=== PATIENT | female | born 1950 | race Caucasian/White ===

== ENCOUNTER 2021-01-27 22:03 | Inpatient (IN) | payer OTHER ==
[2021-01-27 22:18] VITALS: BMI 29.2
[2021-01-27] MEDS ORDERED: SODIUM CHLORIDE 1,000 ML IV STA (23:11)
[2021-01-28 01:09] LABS: BASO % 1.1 % (0-2.0); EOS % 1.1 % (0-4.5); HEMATOCRIT 41.3 % (32.4-45.2); HEMOGLOBIN 13.3 GM/dL (10.7-15.3); LYMPH % 6.9 % (8-40); MCH 28.7 pg (25.7-33.7); MCHC 32.3 g/dl (32.0-36.0); MEAN CELL VOLUME 88.8 fl (80-96); MEAN PLT VOLUME 11.1 fl (7.5-11.1); MONO % 3.8 % (3.8-10.2); NEUT % 87.1 % (42.8-82.8); PLATELET COUNT 233 10^3/uL (134-434); RBC 4.64 M/mm3 (3.60-5.2); RDW 16.8 % (11.6-15.6)
[2021-01-28 01:15] LABS: WHITE BLOOD COUNT 48.7 K/mm3 (4.0-10.0)
[2021-01-28 01:26] LABS: CALCIUM 9.8 mg/dL (8.5-10.1)
[2021-01-28 01:27] LABS: ALBUMIN 4.1 g/dl (3.4-5.0); BLOOD UREA NITROGEN 15.9 mg/dL (7-18)
[2021-01-28 01:30] LABS: CREATININE 1.6 mg/dL (0.55-1.3)
[2021-01-28 01:32] LABS: BILIRUBIN,TOTAL 0.5 mg/dL (0.2-1); TOT PROT 8.4 g/dl (6.4-8.2)
[2021-01-28 02:04] LABS: LACTIC ACID 3.6 mmol/L (0.4-2.0)
[2021-01-28 02:06] LABS: URINE APPEARANCE CLEAR; URINE BILIRUBIN NEGATIVE (NEGATIVE); URINE COLOR YELLOW; URINE GLUCOSE (UA) NEGATIVE (NEGATIVE); URINE KETONE 2+ (NEGATIVE); URINE LEUK ESTERASE NEGATIVE (NEGATIVE); URINE NITRITE NEGATIVE (NEGATIVE); URINE PROTEIN NEGATIVE (NEGATIVE); URINE UROBILINOGEN 0.2 mg/dL (0.2-1.0)
[2021-01-28 02:45] LABS: ANISOCYTOSIS 1+; MACROCYTOSIS 0; PLATELET ESTIMATE NORMAL
[2021-01-28] MEDS ORDERED: PIPERACILLIN/TAZOB 4.5 GM 4.5 GM in DEXTROSE 5%-WATER 100 ML IVPB ONE (03:04)
[2021-01-28] MEDS ORDERED: PIPERACILLIN/TAZOB 3.375 GM 3.375 GM in DEXTROSE 5%-WATER - 50 ML IVPB ONE (03:06)
[2021-01-28] MEDS ORDERED: LORazepam 2 MG/ML SDV VIAL IVPUSH ONE (03:15)
[2021-01-28] MEDS ORDERED: LORazepam 2 MG/ML SDV VIAL ONE ×3 (03:44→11:55)
[2021-01-28] MEDS ORDERED: LORazepam 2 MG/ML SDV VIAL IM ONE ×2 (05:09→11:38)
[2021-01-28] MEDS ORDERED: MIDAZOLAM HCL 2 MG/2 ML SINGLE DOSE VIAL IVPUSH ONE (07:00)
[2021-01-28] MEDS ORDERED: HALOPERIDOL LACTATE 5 MG/ML IM ONE (07:32)
[2021-01-28] MEDS ORDERED: HALOPERIDOL LACTATE 5 MG/ML ONE (08:03)
[2021-01-28] MEDS ORDERED: MIDAZOLAM HCL 2 MG/2 ML SINGLE DOSE VIAL ONE (08:03)
[2021-01-28] MEDS ORDERED: LACTATED RINGERS SOLUTION 1,000 ML/1,000 ML INFUS.BAG IV SCH (09:15)
[2021-01-28] MEDS ORDERED: PIPERACILLIN/TAZOB 3.375 GM 3.375 GM/50 ML BAG IVPB ONE (09:46)
[2021-01-28] MEDS: LACTATED RINGERS SOLUTION 1,000 ML/1,000 ML INFUS.BAG IV SCH (10:11)
[2021-01-28] MEDS ORDERED: INSULIN SLIDING SCALE (NOVOLOG) 1 VIAL SQ SCH (11:30)
[2021-01-28] MEDS: VANCOMYCIN 1 GM in D5W (PRE-DOCKED) 1,000 MG/250 ML IVPB ONE ×2 (11:35→13:45)
[2021-01-28] MEDS ORDERED: HEPARIN NA (PORCINE) 5,000 UNITS/ML 1ML VIAL SQ SCH (14:00)
[2021-01-28] MEDS ORDERED: VANCOMYCIN 1 GRAM (PRE-DOCKED) 1,000 MG/250 ML BAG IVPB ONE (14:05)
[2021-01-28] MEDS ORDERED: HEPARIN NA (PORCINE) 5,000 UNITS/ML 1ML VIAL ONE (14:44)
[2021-01-28] MEDS ORDERED: LORazepam 0.5 MG TABLET PO SCH (15:00)
[2021-01-28] MEDS: INSULIN SLIDING SCALE (NOVOLOG) 1 VIAL SQ SCH ×2 (17:10→22:36)
[2021-01-28] MEDS ORDERED: LORazepam 1 MG TABLET PO SCH (22:00)
[2021-01-28] MEDS: ATORVASTATIN CA 20 MG TABLET (FP) PO SCH (22:23)
[2021-01-28] MEDS: MELATONIN 5 MG TABLETS PO SCH (22:23)
[2021-01-28] MEDS: MEMANTINE HCL 10 MG TABLET (FP) PO SCH (22:24)
[2021-01-28] MEDS: QUEtiapine FUMARATE 50 MG TABLET PO SCH (22:24)
[2021-01-28] MEDS: LORazepam 2 MG/ML SDV VIAL IVPUSH SCH (22:25)
[2021-01-29] MEDS: LACTATED RINGERS SOLUTION 1,000 ML/1,000 ML INFUS.BAG IV SCH ×3 (01:45→20:48)
[2021-01-29] MEDS: INSULIN SLIDING SCALE (NOVOLOG) 1 VIAL SQ SCH ×4 (06:34→21:08)
[2021-01-29 07:28] LABS: HEMATOCRIT 36.3 % (32.4-45.2); HEMOGLOBIN 12.2 GM/dL (10.7-15.3); MCH 29.6 pg (25.7-33.7); MCHC 33.5 g/dl (32.0-36.0); MEAN CELL VOLUME 88.4 fl (80-96); MEAN PLT VOLUME 11.1 fl (7.5-11.1); PLATELET COUNT 223 10^3/uL (134-434); RBC 4.11 M/mm3 (3.60-5.2); RDW 16.6 % (11.6-15.6)
[2021-01-29 07:56] LABS: ALBUMIN 3.8 g/dl (3.4-5.0); BLOOD UREA NITROGEN 16.6 mg/dL (7-18)
[2021-01-29 07:57] LABS: CALCIUM 9.6 mg/dL (8.5-10.1); MAGNESIUM 1.5 mg/dL (1.8-2.4)
[2021-01-29 07:59] LABS: PHOSPHOROUS 2.3 mg/dL (2.5-4.9)
[2021-01-29 08:01] LABS: BILIRUBIN,TOTAL 0.6 mg/dL (0.2-1)
[2021-01-29 08:02] LABS: TOT PROT 7.7 g/dl (6.4-8.2)
[2021-01-29 08:16] LABS: WHITE BLOOD COUNT 64.4 K/mm3 (4.0-10.0)
[2021-01-29 08:52] LABS: ANISOCYTOSIS 0; HELMET CELLS 0; HOWELL-JOLLY BODIES 0; MACROCYTOSIS 0; OVALOCYTE 0; PLATELET ESTIMATE NORMAL; ROULEAU 0; SICKELED CELLS 0; TARGET CELLS 0; TEAR DROP CELLS 0; TOXIC GRANULATION 0
[2021-01-29] MEDS: MIRTAZAPINE 15 MG TABLET (FP) PO SCH (10:22)
[2021-01-29] MEDS: ASPIRIN 81 MG CHEWABLE TABLETS PO SCH (10:22)
[2021-01-29] MEDS: OLANZapine 10 MG TABLET PO SCH (10:22)
[2021-01-29] MEDS: LORazepam 2 MG/ML SDV VIAL IVPUSH SCH (10:25)
[2021-01-29] MEDS: LORazepam 2 MG/ML SDV VIAL IVPUSH PRN (16:50)
[2021-01-29] MEDS ORDERED: LORazepam 2 MG/ML SDV VIAL IVPUSH ONE (17:00)
[2021-01-29] MEDS: QUEtiapine FUMARATE 50 MG TABLET PO SCH (21:08)
[2021-01-29] MEDS: ATORVASTATIN CA 20 MG TABLET (FP) PO SCH (21:08)
[2021-01-29] MEDS: MELATONIN 5 MG TABLETS PO SCH (21:08)
[2021-01-29] MEDS ORDERED: PT OWN MED DRAWER 7, Y5N ONE (21:10)
[2021-01-29] MEDS: MEMANTINE HCL 10 MG TABLET (FP) PO SCH (21:11)
[2021-01-30] MEDS: LACTATED RINGERS SOLUTION 1,000 ML/1,000 ML INFUS.BAG IV SCH ×3 (04:41→20:05)
[2021-01-30] MEDS: INSULIN SLIDING SCALE (NOVOLOG) 1 VIAL SQ SCH ×4 (06:10→21:28)
[2021-01-30 06:30] LABS: HEMATOCRIT 36.1 % (32.4-45.2); HEMOGLOBIN 11.7 GM/dL (10.7-15.3); MCH 29.3 pg (25.7-33.7); MCHC 32.3 g/dl (32.0-36.0); MEAN CELL VOLUME 90.6 fl (80-96); MEAN PLT VOLUME 10.6 fl (7.5-11.1); PLATELET COUNT 169 10^3/uL (134-434); RBC 3.99 M/mm3 (3.60-5.2)
[2021-01-30 06:39] LABS: WHITE BLOOD COUNT 44.9 K/mm3 (4.0-10.0)
[2021-01-30 06:52] LABS: CALCIUM 8.9 mg/dL (8.5-10.1)
[2021-01-30 06:53] LABS: BLOOD UREA NITROGEN 17.1 mg/dL (7-18)
[2021-01-30 06:56] LABS: CREATININE 1.3 mg/dL (0.55-1.3); MAGNESIUM 1.7 mg/dL (1.8-2.4); PHOSPHOROUS 3.9 mg/dL (2.5-4.9)
[2021-01-30 06:57] LABS: BILIRUBIN,TOTAL 0.4 mg/dL (0.2-1); TOT PROT 5.9 g/dl (6.4-8.2)
[2021-01-30 07:09] LABS: ALBUMIN 2.8 g/dl (3.4-5.0)
[2021-01-30] MEDS ORDERED: VANCOMYCIN 1 GM in D5W (PRE-DOCKED) 1,000 MG/250 ML IVPB ONE (09:00)
[2021-01-30 09:20] LABS: URINE BARBITURATES NEGATIVE (NEGATIVE); URINE BENZODIAZEPINES NEGATIVE (NEGATIVE)
[2021-01-30 09:21] LABS: METHADONE, UR NEGATIVE (NEGATIVE); OPIATES, URI NEGATIVE (NEGATIVE); PHENCYCLIDINE,URINE NEGATIVE (NEGATIVE)
[2021-01-30 09:26] LABS: COCAINE, UR NEGATIVE (NEGATIVE); URINE AMPHETAMINES NEGATIVE (NEGATIVE)
[2021-01-30 09:45] LABS: ANISOCYTOSIS 1+; MACROCYTOSIS 0; PLATELET ESTIMATE NORMAL; TARGET CELLS 1+; TEAR DROP CELLS 1+
[2021-01-30] MEDS: ASPIRIN 81 MG CHEWABLE TABLETS PO SCH (11:31)
[2021-01-30] MEDS: OLANZapine 10 MG TABLET PO SCH (11:32)
[2021-01-30] MEDS: MIRTAZAPINE 15 MG TABLET (FP) PO SCH (11:32)
[2021-01-30] MEDS ORDERED: chlorproMAZINE HCL 25 MG/1 ML AMP IM ONE (16:50)
[2021-01-30] MEDS ORDERED: MAGNESIUM 1GM/D5W 100ML - 100 ML IVPB IVPB ONE (17:18)
[2021-01-30] MEDS ORDERED: PT OWN MED DRAWER 7, Y5N ONE (19:17)
[2021-01-30] MEDS: MELATONIN 5 MG TABLETS PO SCH (21:28)
[2021-01-30] MEDS: MEMANTINE HCL 10 MG TABLET (FP) PO SCH (21:28)
[2021-01-30] MEDS: ATORVASTATIN CA 20 MG TABLET (FP) PO SCH (21:28)
[2021-01-30] MEDS: QUEtiapine FUMARATE 50 MG TABLET PO SCH (21:28)
[2021-01-31] MEDS: INSULIN SLIDING SCALE (NOVOLOG) 1 VIAL SQ SCH ×4 (06:15→23:42)
[2021-01-31] MEDS: LACTATED RINGERS SOLUTION 1,000 ML/1,000 ML INFUS.BAG IV SCH ×2 (06:16→10:43)
[2021-01-31 06:56] LABS: HEMATOCRIT 37.7 % (32.4-45.2); HEMOGLOBIN 12.6 GM/dL (10.7-15.3); MCH 29.4 pg (25.7-33.7); MCHC 33.4 g/dl (32.0-36.0); MEAN PLT VOLUME 10.8 fl (7.5-11.1); PLATELET COUNT 216 10^3/uL (134-434); RBC 4.28 M/mm3 (3.60-5.2); RDW 16.7 % (11.6-15.6)
[2021-01-31 07:01] LABS: BLOOD UREA NITROGEN 11.7 mg/dL (7-18); CALCIUM 9.4 mg/dL (8.5-10.1)
[2021-01-31 07:03] LABS: WHITE BLOOD COUNT 54.6 K/mm3 (4.0-10.0)
[2021-01-31 07:05] LABS: CREATININE 1.2 mg/dL (0.55-1.3)
[2021-01-31 07:06] LABS: BILIRUBIN,TOTAL 0.7 mg/dL (0.2-1); TOT PROT 7.2 g/dl (6.4-8.2)
[2021-01-31 07:14] LABS: ALBUMIN 3.4 g/dl (3.4-5.0)
[2021-01-31 09:18] LABS: ANISOCYTOSIS 1+; MACROCYTOSIS 0; PLATELET ESTIMATE NORMAL
[2021-01-31] MEDS: MIRTAZAPINE 15 MG TABLET (FP) PO SCH (10:45)
[2021-01-31] MEDS: ASPIRIN 81 MG CHEWABLE TABLETS PO SCH (10:45)
[2021-01-31] MEDS: OLANZapine 10 MG TABLET PO SCH (10:45)
[2021-01-31] MEDS: LORazepam 2 MG/ML SDV VIAL IVPUSH PRN (16:01)
[2021-01-31] MEDS ORDERED: INSULIN (NOVOLOG) ASPART 100 UNITS/ML 10ML VIAL ONE (17:09)
[2021-01-31] MEDS: QUEtiapine FUMARATE 50 MG TABLET PO SCH (23:00)
[2021-01-31] MEDS: ATORVASTATIN CA 20 MG TABLET (FP) PO SCH (23:00)
[2021-01-31] MEDS: MELATONIN 5 MG TABLETS PO SCH (23:00)
[2021-01-31] MEDS: MEMANTINE HCL 10 MG TABLET (FP) PO SCH (23:00)
[2021-02-01] MEDS: INSULIN SLIDING SCALE (NOVOLOG) 1 VIAL SQ SCH ×4 (06:07→22:17)
[2021-02-01 07:43] LABS: HEMATOCRIT 34.4 % (32.4-45.2); HEMOGLOBIN 11.6 GM/dL (10.7-15.3); MCH 29.4 pg (25.7-33.7); MCHC 33.8 g/dl (32.0-36.0); MEAN CELL VOLUME 86.9 fl (80-96); MEAN PLT VOLUME 10.6 fl (7.5-11.1); PLATELET COUNT 183 10^3/uL (134-434); RBC 3.96 M/mm3 (3.60-5.2); RDW 16.4 % (11.6-15.6)
[2021-02-01 07:52] LABS: WHITE BLOOD COUNT 46.4 K/mm3 (4.0-10.0)
[2021-02-01 08:09] LABS: CALCIUM 8.9 mg/dL (8.5-10.1)
[2021-02-01 08:10] LABS: ALBUMIN 3.3 g/dl (3.4-5.0); BLOOD UREA NITROGEN 11.2 mg/dL (7-18); MAGNESIUM 1.8 mg/dL (1.8-2.4)
[2021-02-01 08:13] LABS: BILIRUBIN,TOTAL 0.7 mg/dL (0.2-1); CREATININE 1.2 mg/dL (0.55-1.3); TOT PROT 6.8 g/dl (6.4-8.2)
[2021-02-01 08:48] LABS: ANISOCYTOSIS 0; HELMET CELLS 0; HOWELL-JOLLY BODIES 0; MACROCYTOSIS 0; OVALOCYTE 0; PLATELET ESTIMATE NORMAL; ROULEAU 0; SICKELED CELLS 0; TARGET CELLS 0; TEAR DROP CELLS 0; TOXIC GRANULATION 0
[2021-02-01] MEDS: MIRTAZAPINE 15 MG TABLET (FP) PO SCH ×2 (11:26→11:53)
[2021-02-01] MEDS: OLANZapine 10 MG TABLET PO SCH ×2 (11:28→11:54)
[2021-02-01] MEDS: ASPIRIN 81 MG CHEWABLE TABLETS PO SCH ×2 (11:28→11:53)
[2021-02-01] MEDS: LACTATED RINGERS SOLUTION 1,000 ML/1,000 ML INFUS.BAG IV SCH (11:33)
[2021-02-01] MEDS: MELATONIN 5 MG TABLETS PO SCH (22:16)
[2021-02-01] MEDS: QUEtiapine FUMARATE 50 MG TABLET PO SCH (22:16)
[2021-02-01] MEDS: ATORVASTATIN CA 20 MG TABLET (FP) PO SCH (22:16)
[2021-02-01] MEDS: MEMANTINE HCL 10 MG TABLET (FP) PO SCH (22:16)
[2021-02-02] MEDS: INSULIN SLIDING SCALE (NOVOLOG) 1 VIAL SQ SCH ×4 (06:28→23:05)
[2021-02-02 09:07] LABS: HEMATOCRIT 37.7 % (32.4-45.2); HEMOGLOBIN 12.5 GM/dL (10.7-15.3); MCH 29.4 pg (25.7-33.7); MCHC 33.1 g/dl (32.0-36.0); MEAN CELL VOLUME 88.9 fl (80-96); MEAN PLT VOLUME 10.8 fl (7.5-11.1); PLATELET COUNT 186 10^3/uL (134-434); RBC 4.25 M/mm3 (3.60-5.2)
[2021-02-02 09:09] LABS: WHITE BLOOD COUNT 42.5 K/mm3 (4.0-10.0)
[2021-02-02 09:28] LABS: ALBUMIN 3.5 g/dl (3.4-5.0); BLOOD UREA NITROGEN 11.5 mg/dL (7-18); CALCIUM 9.4 mg/dL (8.5-10.1)
[2021-02-02 09:31] LABS: CREATININE 1.2 mg/dL (0.55-1.3); MAGNESIUM 1.8 mg/dL (1.8-2.4)
[2021-02-02 09:33] LABS: BILIRUBIN,TOTAL 0.6 mg/dL (0.2-1)
[2021-02-02 10:21] LABS: ANISOCYTOSIS 1+; MACROCYTOSIS 0; PLATELET ESTIMATE NORMAL
[2021-02-02] MEDS: LACTATED RINGERS SOLUTION 1,000 ML/1,000 ML INFUS.BAG IV SCH (17:57)
[2021-02-02] MEDS: MIRTAZAPINE 15 MG TABLET (FP) PO SCH (17:58)
[2021-02-02] MEDS: ASPIRIN 81 MG CHEWABLE TABLETS PO SCH (17:58)
[2021-02-02] MEDS: OLANZapine 10 MG TABLET PO SCH (17:59)
[2021-02-02] MEDS: DEXTROSE 5%-LACTATED RINGERS 1,000 ML IV SCH (18:35)
[2021-02-02] MEDS: ATORVASTATIN CA 20 MG TABLET (FP) PO SCH (22:29)
[2021-02-02] MEDS: MELATONIN 5 MG TABLETS PO SCH (22:30)
[2021-02-02] MEDS: MEMANTINE HCL 10 MG TABLET (FP) PO SCH (22:30)
[2021-02-02] MEDS: QUEtiapine FUMARATE 50 MG TABLET PO SCH (22:30)
[2021-02-03] MEDS: DEXTROSE 5%-LACTATED RINGERS 1,000 ML IV SCH ×2 (02:50→23:02)
[2021-02-03] MEDS: INSULIN SLIDING SCALE (NOVOLOG) 1 VIAL SQ SCH ×4 (06:18→21:04)
[2021-02-03 09:12] LABS: BLOOD UREA NITROGEN 12.2 mg/dL (7-18); CALCIUM 8.6 mg/dL (8.5-10.1)
[2021-02-03 09:15] LABS: CREATININE 1.3 mg/dL (0.55-1.3)
[2021-02-03 09:17] LABS: BILIRUBIN,TOTAL 0.5 mg/dL (0.2-1); TOT PROT 6.4 g/dl (6.4-8.2)
[2021-02-03 09:34] LABS: MAGNESIUM 1.6 mg/dL (1.8-2.4)
[2021-02-03 11:12] LABS: HEMATOCRIT 36.2 % (32.4-45.2); HEMOGLOBIN 12.1 GM/dL (10.7-15.3); MCH 29.2 pg (25.7-33.7); MCHC 33.4 g/dl (32.0-36.0); MEAN CELL VOLUME 87.4 fl (80-96); PLATELET COUNT 191 10^3/uL (134-434); RBC 4.14 M/mm3 (3.60-5.2); RDW 16.6 % (11.6-15.6)
[2021-02-03 11:21] LABS: WHITE BLOOD COUNT 38.3 K/mm3 (4.0-10.0)
[2021-02-03] MEDS ORDERED: PT OWN MED DRAWER 7, Y5N ONE ×3 (12:10→21:05)
[2021-02-03] MEDS: chlorproMAZINE HCL 25 MG/1 ML AMP IM PRN ×2 (12:13→20:53)
[2021-02-03] MEDS ORDERED: MAGNESIUM SULF 50% (8.12 MEQ/2 ML-1 GM VIAL) IVPB ONE (12:15)
[2021-02-03] MEDS ORDERED: MAGNESIUM SULFATE IN WATER 2 GM/50 ML IVPB IVPB ONE (12:30)
[2021-02-03 12:40] LABS: ANISOCYTOSIS 0; MACROCYTOSIS 0; PLATELET ESTIMATE NORMAL
[2021-02-03] MEDS: BACITRACIN 15 GM TUBE TOPICAL OINTMENT TP SCH (12:48)
[2021-02-03] MEDS: ASPIRIN 81 MG CHEWABLE TABLETS PO SCH (12:49)
[2021-02-03] MEDS: MIRTAZAPINE 15 MG TABLET (FP) PO SCH (12:50)
[2021-02-03] MEDS: OLANZapine 10 MG TABLET PO SCH (12:50)
[2021-02-03] MEDS: ATORVASTATIN CA 20 MG TABLET (FP) PO SCH (21:04)
[2021-02-03] MEDS: MELATONIN 5 MG TABLETS PO SCH (21:04)
[2021-02-03] MEDS: MEMANTINE HCL 10 MG TABLET (FP) PO SCH (21:04)
[2021-02-03] MEDS: QUEtiapine FUMARATE 50 MG TABLET PO SCH (21:04)
[2021-02-03] MEDS: HEPARIN NA (PORCINE) 5,000 UNITS/ML 1ML VIAL SQ SCH (21:06)
[2021-02-04] MEDS: INSULIN SLIDING SCALE (NOVOLOG) 1 VIAL SQ SCH ×4 (06:24→22:34)
[2021-02-04 08:31] LABS: HEMATOCRIT 37.8 % (32.4-45.2); HEMOGLOBIN 12.5 GM/dL (10.7-15.3); MCH 29.5 pg (25.7-33.7); MCHC 33.1 g/dl (32.0-36.0); MEAN CELL VOLUME 89.1 fl (80-96); MEAN PLT VOLUME 11.5 fl (7.5-11.1); PLATELET COUNT 132 10^3/uL (134-434); RBC 4.24 M/mm3 (3.60-5.2); RDW 16.8 % (11.6-15.6)
[2021-02-04 08:34] LABS: ALBUMIN 3.5 g/dl (3.4-5.0); CALCIUM 8.8 mg/dL (8.5-10.1)
[2021-02-04 08:35] LABS: BLOOD UREA NITROGEN 8.4 mg/dL (7-18); WHITE BLOOD COUNT 34.9 K/mm3 (4.0-10.0)
[2021-02-04 08:37] LABS: CREATININE 1.2 mg/dL (0.55-1.3)
[2021-02-04 08:39] LABS: BILIRUBIN,TOTAL 0.5 mg/dL (0.2-1); TOT PROT 6.9 g/dl (6.4-8.2)
[2021-02-04 08:41] LABS: MAGNESIUM 2.2 mg/dL (1.8-2.4)
[2021-02-04 09:48] LABS: ANISOCYTOSIS 1+; MACROCYTOSIS 1+; PLATELET ESTIMATE DECREASED; TEAR DROP CELLS 1+
[2021-02-04] MEDS: BACITRACIN 15 GM TUBE TOPICAL OINTMENT TP SCH (10:05)
[2021-02-04] MEDS: ASPIRIN 81 MG CHEWABLE TABLETS PO SCH (10:05)
[2021-02-04] MEDS: HEPARIN NA (PORCINE) 5,000 UNITS/ML 1ML VIAL SQ SCH ×2 (10:05→22:34)
[2021-02-04] MEDS: MIRTAZAPINE 15 MG TABLET (FP) PO SCH (10:06)
[2021-02-04] MEDS: OLANZapine 10 MG TABLET PO SCH (10:06)
[2021-02-04] MEDS ORDERED: PT OWN MED DRAWER 7, Y5N ONE ×2 (16:37→22:24)
[2021-02-04] MEDS: AMINO ACIDS/PROTEIN HYDROLYS 30 ML LIQUID.PKT PO SCH (16:40)
[2021-02-04] MEDS: MULTIVIT-MINERALS ORAL LIQUID PO SCH (16:40)
[2021-02-04] MEDS: AMINO ACIDS 4.25%/D5W 1,000 ML IV SCH (16:40)
[2021-02-04] MEDS: QUEtiapine FUMARATE 50 MG TABLET PO SCH (22:31)
[2021-02-04] MEDS: MEMANTINE HCL 10 MG TABLET (FP) PO SCH (22:32)
[2021-02-04] MEDS: ATORVASTATIN CA 20 MG TABLET (FP) PO SCH (22:32)
[2021-02-04] MEDS: MELATONIN 5 MG TABLETS PO SCH (22:34)
[2021-02-05] MEDS: INSULIN SLIDING SCALE (NOVOLOG) 1 VIAL SQ SCH ×4 (06:33→21:37)
[2021-02-05 08:55] LABS: HEMATOCRIT 36.8 % (32.4-45.2); HEMOGLOBIN 12.1 GM/dL (10.7-15.3); MCH 29.4 pg (25.7-33.7); MEAN CELL VOLUME 89.1 fl (80-96); MEAN PLT VOLUME 11.4 fl (7.5-11.1); PLATELET COUNT 168 10^3/uL (134-434); RBC 4.13 M/mm3 (3.60-5.2); RDW 16.9 % (11.6-15.6)
[2021-02-05 09:09] LABS: BLOOD UREA NITROGEN 10.5 mg/dL (7-18); CALCIUM 8.9 mg/dL (8.5-10.1); WHITE BLOOD COUNT 36.2 K/mm3 (4.0-10.0)
[2021-02-05 09:12] LABS: CREATININE 1.1 mg/dL (0.55-1.3)
[2021-02-05] MEDS: OLANZapine 10 MG TABLET PO SCH (10:30)
[2021-02-05] MEDS: MIRTAZAPINE 15 MG TABLET (FP) PO SCH (10:30)
[2021-02-05] MEDS: HEPARIN NA (PORCINE) 5,000 UNITS/ML 1ML VIAL SQ SCH ×2 (10:30→21:38)
[2021-02-05] MEDS: AMINO ACIDS/PROTEIN HYDROLYS 30 ML LIQUID.PKT PO SCH ×2 (10:31→17:25)
[2021-02-05] MEDS: MEMANTINE HCL 10 MG TABLET (FP) PO SCH ×2 (10:31→21:37)
[2021-02-05] MEDS: MULTIVIT-MINERALS ORAL LIQUID PO SCH (10:31)
[2021-02-05] MEDS: ASPIRIN 81 MG CHEWABLE TABLETS PO SCH (10:31)
[2021-02-05] MEDS: BACITRACIN 15 GM TUBE TOPICAL OINTMENT TP SCH (10:32)
[2021-02-05 11:53] LABS: ANISOCYTOSIS 0; HELMET CELLS 0; HOWELL-JOLLY BODIES 0; MACROCYTOSIS 0; OVALOCYTE 0; PLATELET ESTIMATE NORMAL; ROULEAU 0; SICKELED CELLS 0; TARGET CELLS 0; TEAR DROP CELLS 0; TOXIC GRANULATION 0
[2021-02-05] MEDS: AMINO ACIDS 4.25%/D5W 1,000 ML IV SCH (15:00)
[2021-02-05] MEDS ORDERED: LORazepam 2 MG/ML SDV VIAL IVPUSH ONE (15:00)
[2021-02-05] MEDS ORDERED: PT OWN MED DRAWER 7, Y5N ONE ×2 (19:39→20:35)
[2021-02-05] MEDS: chlorproMAZINE HCL 25 MG/1 ML AMP IM PRN (19:56)
[2021-02-05] MEDS: ATORVASTATIN CA 20 MG TABLET (FP) PO SCH (21:37)
[2021-02-05] MEDS: MELATONIN 5 MG TABLETS PO SCH (21:37)
[2021-02-05] MEDS: QUEtiapine FUMARATE 50 MG TABLET PO SCH (21:38)
[2021-02-06] MEDS: chlorproMAZINE HCL 25 MG/1 ML AMP IM PRN ×2 (05:23→12:51)
[2021-02-06] MEDS: INSULIN SLIDING SCALE (NOVOLOG) 1 VIAL SQ SCH ×4 (06:06→21:18)
[2021-02-06] MEDS ORDERED: morphine SULFATE 4 MG/ML VIAL IM ONE (06:39)
[2021-02-06] MEDS: AMINO ACIDS/PROTEIN HYDROLYS 30 ML LIQUID.PKT PO SCH ×2 (09:15→19:40)
[2021-02-06] MEDS ORDERED: PT OWN MED DRAWER 7, Y5N ONE ×4 (09:38→15:47)
[2021-02-06] MEDS: HEPARIN NA (PORCINE) 5,000 UNITS/ML 1ML VIAL SQ SCH ×2 (10:00→21:19)
[2021-02-06] MEDS: MIRTAZAPINE 15 MG TABLET (FP) PO SCH (10:00)
[2021-02-06] MEDS ORDERED: LORazepam 2 MG/ML SDV VIAL IVPUSH ONE ×2 (10:00→15:30)
[2021-02-06] MEDS ORDERED: chlorproMAZINE HCL 25 MG/1 ML AMP IM ONE (10:00)
[2021-02-06] MEDS: OLANZapine 10 MG TABLET PO SCH (10:01)
[2021-02-06] MEDS: ASPIRIN 81 MG CHEWABLE TABLETS PO SCH (10:01)
[2021-02-06] MEDS: MEMANTINE HCL 10 MG TABLET (FP) PO SCH ×2 (10:02→23:27)
[2021-02-06] MEDS: MULTIVIT-MINERALS ORAL LIQUID PO SCH (10:02)
[2021-02-06] MEDS: LORazepam 1 MG TABLET PO SCH ×2 (10:06→23:27)
[2021-02-06] MEDS: BACITRACIN 15 GM TUBE TOPICAL OINTMENT TP SCH (10:13)
[2021-02-06 11:30] LABS: BASO % 2.8 % (0-2.0); EOS % 0.6 % (0-4.5); HEMATOCRIT 37.2 % (32.4-45.2); LYMPH % 8.4 % (8-40); MCH 29.1 pg (25.7-33.7); MCHC 32.3 g/dl (32.0-36.0); MEAN PLT VOLUME 11.4 fl (7.5-11.1); MONO % 5.9 % (3.8-10.2); NEUT % 82.3 % (42.8-82.8); PLATELET COUNT 168 10^3/uL (134-434); RBC 4.13 M/mm3 (3.60-5.2); RDW 17.1 % (11.6-15.6)
[2021-02-06 11:44] LABS: INR 1.61 (0.83-1.09); PROTHROMBIN TIME (PATIENT) 18.1 SEC (9.7-13.0)
[2021-02-06 11:46] LABS: WHITE BLOOD COUNT 34.7 K/mm3 (4.0-10.0)
[2021-02-06 11:47] LABS: ACTIVATED PTT 26.6 SECONDS (25.2-36.5)
[2021-02-06 11:53] LABS: ALBUMIN 3.8 g/dl (3.4-5.0); BLOOD UREA NITROGEN 19.9 mg/dL (7-18); CALCIUM 9.5 mg/dL (8.5-10.1)
[2021-02-06 11:54] LABS: MAGNESIUM 1.8 mg/dL (1.8-2.4)
[2021-02-06 11:56] LABS: CREATININE 1.4 mg/dL (0.55-1.3); PHOSPHOROUS 3.6 mg/dL (2.5-4.9); URIC ACID 10.5 mg/dL (2.6-7.2)
[2021-02-06 11:57] LABS: BILIRUBIN,TOTAL 0.7 mg/dL (0.2-1)
[2021-02-06 11:58] LABS: TOT PROT 7.6 g/dl (6.4-8.2)
[2021-02-06] MEDS: AMINO ACIDS 4.25%/D5W 1,000 ML IV SCH (14:25)
[2021-02-06 14:34] LABS: MACROCYTOSIS 1+; PLATELET ESTIMATE NORMAL
[2021-02-06] MEDS ORDERED: MAGNESIUM 1GM/D5W 100ML - 100 ML IVPB IVPB ONE (16:00)
[2021-02-06] MEDS: KCL 10 MEQ IVPB 10 MEQ/100 ML INFUS.BAG IVPB SCH ×3 (17:00→22:56)
[2021-02-06] MEDS ORDERED: PHOSPHO IV SCH (17:08)
[2021-02-06] MEDS ORDERED: FAT EMULSION IV SCH (17:08)
[2021-02-06] MEDS ORDERED: SOY IV SCH (17:08)
[2021-02-06] MEDS ORDERED: OLIVE IV SCH (17:08)
[2021-02-06] MEDS ORDERED: AMINO ACIDS IV SCH (17:08)
[2021-02-06] MEDS ORDERED: GLUCAGON 1 MG KIT ONE (17:28)
[2021-02-06] MEDS ORDERED: DEXTROSE 50%-WATER - 25 GM/50 ML VIAL IVPUSH ONE (17:32)
[2021-02-06] MEDS ORDERED: DEXTROSE 50%-WATER 25 GM/50 ML DISP.SYRIN ONE (17:54)
[2021-02-06] MEDS ORDERED: AMINO ACIDS 4.25%/D5W 1,000 ML IV SCH (19:00)
[2021-02-06] MEDS: ALLOPURINOL 300 MG TABLET (FP) PO SCH (19:40)
[2021-02-06] MEDS: SODIUM CHLORIDE 1,000 ML IV SCH (19:41)
[2021-02-06] MEDS ORDERED: FAT EMULSION/OLIVE/SOY/PHOSPHO 250 ML IV SCH (22:00)
[2021-02-06] MEDS: MELATONIN 5 MG TABLETS PO SCH (23:27)
[2021-02-06] MEDS: ATORVASTATIN CA 20 MG TABLET (FP) PO SCH (23:27)
[2021-02-06] MEDS: QUEtiapine FUMARATE 50 MG TABLET PO SCH (23:27)
[2021-02-07] MEDS: INSULIN SLIDING SCALE (NOVOLOG) 1 VIAL SQ SCH (06:50)
[2021-02-07 08:06] LABS: IGA IMMUNOGLOBULIN 252 mg/dL (87-352); IGG QN IMMUNOGLOBULIN 1320 mg/dL (586-1602); IGM QN SERUM 107 mg/dL (26-217)
[2021-02-07] MEDS: AMINO ACIDS/PROTEIN HYDROLYS 30 ML LIQUID.PKT PO SCH (09:40)
[2021-02-07] MEDS: BACITRACIN 15 GM TUBE TOPICAL OINTMENT TP SCH (09:40)
[2021-02-07] MEDS: HEPARIN NA (PORCINE) 5,000 UNITS/ML 1ML VIAL SQ SCH ×2 (09:42→22:56)
[2021-02-07] MEDS: MIRTAZAPINE 15 MG TABLET (FP) PO SCH (10:55)
[2021-02-07] MEDS: OLANZapine 10 MG TABLET PO SCH (10:57)
[2021-02-07] MEDS: MULTIVIT-MINERALS ORAL LIQUID PO SCH (10:57)
[2021-02-07] MEDS: MEMANTINE HCL 10 MG TABLET (FP) PO SCH ×2 (10:57→22:56)
[2021-02-07] MEDS: ALLOPURINOL 300 MG TABLET (FP) PO SCH (10:57)
[2021-02-07] MEDS: ASPIRIN 81 MG CHEWABLE TABLETS PO SCH (10:58)
[2021-02-07] MEDS: LORazepam 1 MG TABLET PO SCH ×2 (10:59→22:56)
[2021-02-07 11:20] LABS: HEMATOCRIT 37.4 % (32.4-45.2); HEMOGLOBIN 11.9 GM/dL (10.7-15.3); MCH 28.8 pg (25.7-33.7); MCHC 31.9 g/dl (32.0-36.0); MEAN CELL VOLUME 90.4 fl (80-96); MEAN PLT VOLUME 11.6 fl (7.5-11.1); PLATELET COUNT 183 10^3/uL (134-434); RBC 4.13 M/mm3 (3.60-5.2); RDW 17.3 % (11.6-15.6)
[2021-02-07 11:41] LABS: CALCIUM 8.9 mg/dL (8.5-10.1)
[2021-02-07 11:45] LABS: CREATININE 1.2 mg/dL (0.55-1.3)
[2021-02-07 11:52] LABS: WHITE BLOOD COUNT 43.1 K/mm3 (4.0-10.0)
[2021-02-07 14:13] LABS: ANISOCYTOSIS 1+; MACROCYTOSIS 0; OVALOCYTE 1+; PLATELET ESTIMATE NORMAL; TEAR DROP CELLS 1+
[2021-02-07] MEDS: SODIUM CHLORIDE 1,000 ML IV SCH (16:09)
[2021-02-07] MEDS ORDERED: AMINO ACIDS 4.25%/D5W 1,000 ML IV SCH ×2 (16:30→16:58)
[2021-02-07] MEDS ORDERED: SOY IV SCH (17:13)
[2021-02-07] MEDS ORDERED: PHOSPHO IV SCH (17:13)
[2021-02-07] MEDS ORDERED: OLIVE IV SCH (17:13)
[2021-02-07] MEDS ORDERED: FAT EMULSION IV SCH (17:13)
[2021-02-07] MEDS ORDERED: AMINO ACIDS IV SCH (17:13)
[2021-02-07] MEDS: AMINO ACIDS 4.25%/D5W 1,000 ML IV SCH (17:50)
[2021-02-07] MEDS ORDERED: FAT EMULSION/OLIVE/SOY (CLINOLIPID) 250 ML EMULSION IV SCH (22:00)
[2021-02-07] MEDS ORDERED: FAT EMULSION/OLIVE/SOY/PHOSPHO 250 ML IV SCH (22:00)
[2021-02-07] MEDS ORDERED: PT OWN MED DRAWER 7, Y5N ONE (22:34)
[2021-02-07] MEDS: ATORVASTATIN CA 20 MG TABLET (FP) PO SCH (22:55)
[2021-02-07] MEDS: MELATONIN 5 MG TABLETS PO SCH (22:56)
[2021-02-07] MEDS: QUEtiapine FUMARATE 50 MG TABLET PO SCH (22:56)
[2021-02-07] MEDS: FAT EMULSION/OLIVE/SOY (CLINOLIPID) 250 ML EMULSION IV SCH (22:57)
[2021-02-08] MEDS: AMINO ACIDS 4.25%/D5W 1,000 ML IV SCH (05:29)
[2021-02-08] MEDS ORDERED: PT OWN MED DRAWER 7, Y5N ONE (09:35)
[2021-02-08 10:00] LABS: CALCIUM 8.7 mg/dL (8.5-10.1)
[2021-02-08 10:01] LABS: BLOOD UREA NITROGEN 17.8 mg/dL (7-18)
[2021-02-08 10:04] LABS: MAGNESIUM 1.8 mg/dL (1.8-2.4)
[2021-02-08 10:05] LABS: PHOSPHOROUS 1.9 mg/dL (2.5-4.9)
[2021-02-08] MEDS: HEPARIN NA (PORCINE) 5,000 UNITS/ML 1ML VIAL SQ SCH ×2 (10:59→22:55)
[2021-02-08] MEDS: ALLOPURINOL 300 MG TABLET (FP) PO SCH (11:02)
[2021-02-08] MEDS: MIRTAZAPINE 15 MG TABLET (FP) PO SCH ×2 (11:02→16:33)
[2021-02-08] MEDS: ASPIRIN 81 MG CHEWABLE TABLETS PO SCH (11:02)
[2021-02-08] MEDS: MULTIVIT-MINERALS ORAL LIQUID PO SCH (11:02)
[2021-02-08] MEDS: LORazepam 1 MG TABLET PO SCH (11:02)
[2021-02-08] MEDS: MEMANTINE HCL 10 MG TABLET (FP) PO SCH ×2 (11:02→22:55)
[2021-02-08] MEDS: OLANZapine 10 MG TABLET PO SCH ×2 (11:02→16:33)
[2021-02-08] MEDS ORDERED: POTASSIUM PHOSPHATE 30 MM in SODIUM CHLORIDE 500 ML IVPB ONE (12:35)
[2021-02-08] MEDS ORDERED: MAGNESIUM 1GM/D5W 100ML - 100 ML IVPB IVPB ONE (13:15)
[2021-02-08] MEDS: BACITRACIN 15 GM TUBE TOPICAL OINTMENT TP SCH (15:13)
[2021-02-08] MEDS ORDERED: LORazepam 2 MG/ML SDV VIAL IVPUSH PRN (16:20)
[2021-02-08] MEDS: diazePAM CARPU-JECT 10 MG/2 ML DISP.SYRIN IVPUSH SCH (21:07)
[2021-02-08] MEDS: FAT EMULSION/OLIVE/SOY (CLINOLIPID) 250 ML EMULSION IV SCH (21:55)
[2021-02-08] MEDS: LORazepam 2 MG/ML SDV VIAL IVPUSH PRN (21:57)
[2021-02-08] MEDS: ATORVASTATIN CA 20 MG TABLET (FP) PO SCH (22:55)
[2021-02-08] MEDS: QUEtiapine FUMARATE 50 MG TABLET PO SCH (22:55)
[2021-02-08] MEDS: MELATONIN 5 MG TABLETS PO SCH (22:55)
[2021-02-09 09:35] LABS: HEMOGLOBIN 12.1 GM/dL (10.7-15.3); MCH 29.5 pg (25.7-33.7); MCHC 32.7 g/dl (32.0-36.0); MEAN CELL VOLUME 90.1 fl (80-96); PLATELET COUNT 223 10^3/uL (134-434); RBC 4.11 M/mm3 (3.60-5.2)
[2021-02-09] MEDS ORDERED: AMINO ACIDS IV SCH (09:56)
[2021-02-09] MEDS ORDERED: KCL IV SCH (09:56)
[2021-02-09 09:57] LABS: BLOOD UREA NITROGEN 16.6 mg/dL (7-18); CALCIUM 9.5 mg/dL (8.5-10.1)
[2021-02-09 09:58] LABS: WHITE BLOOD COUNT 36.8 K/mm3 (4.0-10.0)
[2021-02-09 10:00] LABS: CREATININE 1.2 mg/dL (0.55-1.3)
[2021-02-09] MEDS ORDERED: KCL 10 MEQ IVPB 10 MEQ/100 ML INFUS.BAG IVPB SCH (10:00)
[2021-02-09] MEDS: diazePAM CARPU-JECT 10 MG/2 ML DISP.SYRIN IVPUSH SCH ×2 (10:03→22:40)
[2021-02-09] MEDS: HEPARIN NA (PORCINE) 5,000 UNITS/ML 1ML VIAL SQ SCH ×2 (10:04→22:42)
[2021-02-09] MEDS: MULTIVIT-MINERALS ORAL LIQUID PO SCH (10:04)
[2021-02-09] MEDS: BACITRACIN 15 GM TUBE TOPICAL OINTMENT TP SCH (10:04)
[2021-02-09] MEDS: MIRTAZAPINE 15 MG TABLET (FP) PO SCH (10:05)
[2021-02-09] MEDS: MEMANTINE HCL 10 MG TABLET (FP) PO SCH ×2 (10:05→22:42)
[2021-02-09] MEDS: OLANZapine 10 MG TABLET PO SCH (10:05)
[2021-02-09] MEDS: ASPIRIN 81 MG CHEWABLE TABLETS PO SCH (10:05)
[2021-02-09 11:20] LABS: ANISOCYTOSIS 0; HELMET CELLS 0; HOWELL-JOLLY BODIES 0; MACROCYTOSIS 0; OVALOCYTE 0; PLATELET ESTIMATE NORMAL; ROULEAU 0; SICKELED CELLS 0; TARGET CELLS 0; TEAR DROP CELLS 0; TOXIC GRANULATION 0
[2021-02-09] MEDS: ALLOPURINOL 300 MG TABLET (FP) PO SCH (11:34)
[2021-02-09] MEDS: AMINO ACIDS 4.25%/D5W 1,000 ML IV SCH ×2 (11:36→22:43)
[2021-02-09] MEDS ORDERED: ACETAMINOPHEN 650 MG SUPP.RECT PR ONE (17:05)
[2021-02-09] MEDS ORDERED: ACETAMINOPHEN 325 MG TABLET (FP) PO ONE (17:05)
[2021-02-09] MEDS ORDERED: PT OWN MED DRAWER 7, Y5N ONE ×2 (19:07→22:05)
[2021-02-09 20:56] LABS: BASO % 1.8 % (0-2.0); EOS % 1.1 % (0-4.5); HEMATOCRIT 34.9 % (32.4-45.2); HEMOGLOBIN 11.4 GM/dL (10.7-15.3); LYMPH % 5.8 % (8-40); MCH 29.1 pg (25.7-33.7); MCHC 32.7 g/dl (32.0-36.0); MEAN CELL VOLUME 89.1 fl (80-96); MEAN PLT VOLUME 11.4 fl (7.5-11.1); NEUT % 86.3 % (42.8-82.8); PLATELET COUNT 198 10^3/uL (134-434); RBC 3.92 M/mm3 (3.60-5.2); RDW 16.7 % (11.6-15.6)
[2021-02-09 21:08] LABS: WHITE BLOOD COUNT 44.1 K/mm3 (4.0-10.0)
[2021-02-09 21:46] LABS: ANISOCYTOSIS 2+; MACROCYTOSIS 0; PLATELET ESTIMATE NORMAL
[2021-02-09] MEDS ORDERED: FAT EMULSION/OLIVE/SOY (CLINOLIPID) 250 ML EMULSION IV SCH (22:00)
[2021-02-09] MEDS: ATORVASTATIN CA 20 MG TABLET (FP) PO SCH (22:42)
[2021-02-09] MEDS: QUEtiapine FUMARATE 50 MG TABLET PO SCH (22:42)
[2021-02-09] MEDS: MELATONIN 5 MG TABLETS PO SCH (22:42)
[2021-02-09] MEDS: FAT EMULSION/OLIVE/SOY (CLINOLIPID) 250 ML EMULSION IV SCH (23:10)
[2021-02-10] MEDS: AMINO ACIDS 4.25%/D5W 1,000 ML IV SCH (04:45)
[2021-02-10] MEDS ORDERED: PT OWN MED DRAWER 7, Y5N ONE ×2 (09:08→23:08)
[2021-02-10] MEDS: diazePAM CARPU-JECT 10 MG/2 ML DISP.SYRIN IVPUSH SCH ×3 (09:13→23:18)
[2021-02-10] MEDS: ALLOPURINOL 300 MG TABLET (FP) PO SCH (09:14)
[2021-02-10] MEDS: ASPIRIN 81 MG CHEWABLE TABLETS PO SCH (09:14)
[2021-02-10] MEDS: OLANZapine 10 MG TABLET PO SCH (09:14)
[2021-02-10] MEDS: MIRTAZAPINE 15 MG TABLET (FP) PO SCH (09:15)
[2021-02-10] MEDS: MULTIVIT-MINERALS ORAL LIQUID PO SCH (09:15)
[2021-02-10] MEDS: HEPARIN NA (PORCINE) 5,000 UNITS/ML 1ML VIAL SQ SCH ×2 (09:16→23:17)
[2021-02-10] MEDS: MEMANTINE HCL 10 MG TABLET (FP) PO SCH ×2 (09:18→23:18)
[2021-02-10] MEDS: BACITRACIN 15 GM TUBE TOPICAL OINTMENT TP SCH (09:40)
[2021-02-10] MEDS: AMINO ACIDS 4.25%/D5W 2,000 ML IV SCH ×2 (09:41→17:22)
[2021-02-10 12:01] LABS: BILIRUBIN,TOTAL 0.5 mg/dL (0.2-1); CALCIUM 8.9 mg/dL (8.5-10.1); CREATININE 1.1 mg/dL (0.55-1.3); MAGNESIUM 1.9 mg/dL (1.8-2.4); PHOSPHOROUS 2.6 mg/dL (2.5-4.9); TOT PROT 7.2 g/dl (6.4-8.2)
[2021-02-10] MEDS: MELATONIN 5 MG TABLETS PO SCH (23:17)
[2021-02-10] MEDS: QUEtiapine FUMARATE 50 MG TABLET PO SCH (23:17)
[2021-02-10] MEDS: ATORVASTATIN CA 20 MG TABLET (FP) PO SCH (23:17)
[2021-02-10] MEDS: FAT EMULSION/OLIVE/SOY (CLINOLIPID) 250 ML EMULSION IV SCH (23:18)
[2021-02-11] MEDS ORDERED: ACETAMINOPHEN 1000 MG/100 ML VIAL IVPB ONE (05:35)
[2021-02-11 09:51] LABS: HEMATOCRIT 37.9 % (32.4-45.2); HEMOGLOBIN 12.4 GM/dL (10.7-15.3); MCH 29.8 pg (25.7-33.7); MCHC 32.8 g/dl (32.0-36.0); MEAN CELL VOLUME 90.8 fl (80-96); MEAN PLT VOLUME 11.9 fl (7.5-11.1); PLATELET COUNT 262 10^3/uL (134-434); RBC 4.17 M/mm3 (3.60-5.2); RDW 17.2 % (11.6-15.6)
[2021-02-11 09:56] LABS: WHITE BLOOD COUNT 48.1 K/mm3 (4.0-10.0)
[2021-02-11 10:12] LABS: ALBUMIN 3.3 g/dl (3.4-5.0); BLOOD UREA NITROGEN 18.9 mg/dL (7-18); CALCIUM 9.4 mg/dL (8.5-10.1); MAGNESIUM 1.7 mg/dL (1.8-2.4)
[2021-02-11] MEDS: AMINO ACIDS 4.25%/D5W 2,000 ML IV SCH (10:14)
[2021-02-11 10:15] LABS: CREATININE 1.1 mg/dL (0.55-1.3)
[2021-02-11 10:16] LABS: PHOSPHOROUS 1.7 mg/dL (2.5-4.9)
[2021-02-11] MEDS: ALLOPURINOL 300 MG TABLET (FP) PO SCH (10:16)
[2021-02-11] MEDS: BACITRACIN 15 GM TUBE TOPICAL OINTMENT TP SCH (10:16)
[2021-02-11] MEDS: ASPIRIN 81 MG CHEWABLE TABLETS PO SCH (10:16)
[2021-02-11] MEDS: HEPARIN NA (PORCINE) 5,000 UNITS/ML 1ML VIAL SQ SCH ×2 (10:16→21:14)
[2021-02-11] MEDS: MIRTAZAPINE 15 MG TABLET (FP) PO SCH (10:16)
[2021-02-11] MEDS: OLANZapine 10 MG TABLET PO SCH (10:16)
[2021-02-11 10:17] LABS: BILIRUBIN,TOTAL 0.5 mg/dL (0.2-1); TOT PROT 7.6 g/dl (6.4-8.2)
[2021-02-11] MEDS: diazePAM CARPU-JECT 10 MG/2 ML DISP.SYRIN IVPUSH SCH ×2 (10:17→21:13)
[2021-02-11] MEDS: MULTIVIT-MINERALS ORAL LIQUID PO SCH (10:17)
[2021-02-11] MEDS: MEMANTINE HCL 10 MG TABLET (FP) PO SCH ×2 (10:17→21:03)
[2021-02-11] MEDS ORDERED: MAGNESIUM 2GM/50ML STERILE WATER IVPB IVPB ONE (12:30)
[2021-02-11] MEDS ORDERED: POTASSIUM PHOSPHATE 30 MM in SODIUM CHLORIDE 500 ML IVPB ONE (13:00)
[2021-02-11 13:23] LABS: OVALOCYTE 1+; PLATELET ESTIMATE NORMAL; ROULEAU 1+
[2021-02-11] MEDS: LORazepam 2 MG/ML SDV VIAL IVPUSH PRN (18:26)
[2021-02-11] MEDS ORDERED: PT OWN MED DRAWER 7, Y5N ONE (19:52)
[2021-02-11] MEDS: QUEtiapine FUMARATE 50 MG TABLET PO SCH (21:03)
[2021-02-11] MEDS: MELATONIN 5 MG TABLETS PO SCH (21:03)
[2021-02-11] MEDS: ATORVASTATIN CA 20 MG TABLET (FP) PO SCH (21:03)
[2021-02-11] MEDS: FAT EMULSION/OLIVE/SOY (CLINOLIPID) 250 ML EMULSION IV SCH (22:48)
[2021-02-12] MEDS ORDERED: PT OWN MED DRAWER 7, Y5N ONE (09:09)
[2021-02-12 09:25] LABS: HEMATOCRIT 33.8 % (32.4-45.2); HEMOGLOBIN 11.1 GM/dL (10.7-15.3); MCH 29.3 pg (25.7-33.7); MCHC 32.9 g/dl (32.0-36.0); MEAN CELL VOLUME 89.1 fl (80-96); MEAN PLT VOLUME 11.7 fl (7.5-11.1); PLATELET COUNT 257 10^3/uL (134-434); RDW 17.2 % (11.6-15.6)
[2021-02-12 09:42] LABS: WHITE BLOOD COUNT 42.2 K/mm3 (4.0-10.0)
[2021-02-12] MEDS: MIRTAZAPINE 15 MG TABLET (FP) PO SCH (10:55)
[2021-02-12] MEDS: ALLOPURINOL 300 MG TABLET (FP) PO SCH (10:55)
[2021-02-12] MEDS: ASPIRIN 81 MG CHEWABLE TABLETS PO SCH (10:55)
[2021-02-12] MEDS: HEPARIN NA (PORCINE) 5,000 UNITS/ML 1ML VIAL SQ SCH ×2 (10:55→21:02)
[2021-02-12] MEDS: diazePAM CARPU-JECT 10 MG/2 ML DISP.SYRIN IVPUSH SCH ×2 (10:56→21:03)
[2021-02-12] MEDS: MULTIVIT-MINERALS ORAL LIQUID PO SCH (10:57)
[2021-02-12] MEDS: MEMANTINE HCL 10 MG TABLET (FP) PO SCH ×2 (10:58→21:03)
[2021-02-12] MEDS: OLANZapine 10 MG TABLET PO SCH (11:01)
[2021-02-12 11:18] LABS: PLATELET ESTIMATE ADEQUATE
[2021-02-12 11:20] LABS: BILIRUBIN,TOTAL 0.4 mg/dL (0.2-1); MAGNESIUM 2.1 mg/dL (1.8-2.4); TOT PROT 6.9 g/dl (6.4-8.2)
[2021-02-12 11:22] LABS: PHOSPHOROUS 4.3 mg/dL (2.5-4.9); URIC ACID 5.2 mg/dL (2.6-7.2)
[2021-02-12] MEDS ORDERED: KCL 10 MEQ IVPB 10 MEQ/100 ML INFUS.BAG IVPB SCH (13:45)
[2021-02-12] MEDS: KCL 10 MEQ IVPB 10 MEQ/100 ML INFUS.BAG IVPB SCH ×2 (16:21→17:27)
[2021-02-12] MEDS: BACITRACIN 15 GM TUBE TOPICAL OINTMENT TP SCH (17:27)
[2021-02-12] MEDS: AMINO ACIDS 4.25%/D5W 2,000 ML IV SCH (18:42)
[2021-02-12] MEDS: ATORVASTATIN CA 20 MG TABLET (FP) PO SCH (21:03)
[2021-02-12] MEDS: MELATONIN 5 MG TABLETS PO SCH (21:03)
[2021-02-12] MEDS: QUEtiapine FUMARATE 50 MG TABLET PO SCH (21:03)
[2021-02-12] MEDS: FAT EMULSION/OLIVE/SOY (CLINOLIPID) 250 ML EMULSION IV SCH (21:58)
[2021-02-13] MEDS ORDERED: PT OWN MED DRAWER 7, Y5N ONE ×3 (08:51→13:00)
[2021-02-13] MEDS: ASPIRIN 81 MG CHEWABLE TABLETS PO SCH ×2 (10:31→16:56)
[2021-02-13] MEDS: OLANZapine 10 MG TABLET PO SCH ×2 (10:31→16:56)
[2021-02-13] MEDS: HEPARIN NA (PORCINE) 5,000 UNITS/ML 1ML VIAL SQ SCH ×2 (10:31→23:00)
[2021-02-13] MEDS: MULTIVIT-MINERALS ORAL LIQUID PO SCH ×2 (10:31→16:56)
[2021-02-13] MEDS: ALLOPURINOL 300 MG TABLET (FP) PO SCH ×2 (10:32→16:56)
[2021-02-13] MEDS: MIRTAZAPINE 15 MG TABLET (FP) PO SCH ×2 (10:32→16:56)
[2021-02-13] MEDS: diazePAM CARPU-JECT 10 MG/2 ML DISP.SYRIN IVPUSH SCH ×2 (11:10→23:01)
[2021-02-13] MEDS: MEMANTINE HCL 10 MG TABLET (FP) PO SCH ×3 (11:24→23:01)
[2021-02-13] MEDS: QUEtiapine FUMARATE 25 MG TABLET PO SCH ×3 (12:11→21:53)
[2021-02-13 12:18] LABS: HEMATOCRIT 34.3 % (32.4-45.2); HEMOGLOBIN 11.1 GM/dL (10.7-15.3); MCH 29.2 pg (25.7-33.7); MCHC 32.4 g/dl (32.0-36.0); MEAN CELL VOLUME 90.2 fl (80-96); MEAN PLT VOLUME 11.9 fl (7.5-11.1); PLATELET COUNT 285 10^3/uL (134-434); RDW 17.2 % (11.6-15.6)
[2021-02-13 12:23] LABS: WHITE BLOOD COUNT 50.1 K/mm3 (4.0-10.0)
[2021-02-13 12:38] LABS: BLOOD UREA NITROGEN 18.3 mg/dL (7-18)
[2021-02-13 12:39] LABS: CALCIUM 9.1 mg/dL (8.5-10.1)
[2021-02-13 12:40] LABS: ALBUMIN 3.1 g/dl (3.4-5.0); MAGNESIUM 1.9 mg/dL (1.8-2.4)
[2021-02-13 12:43] LABS: CREATININE 1.1 mg/dL (0.55-1.3)
[2021-02-13 12:44] LABS: BILIRUBIN,TOTAL 0.7 mg/dL (0.2-1); TOT PROT 7.2 g/dl (6.4-8.2)
[2021-02-13] MEDS: chlorproMAZINE HCL 25 MG/1 ML AMP IM PRN (13:08)
[2021-02-13 13:34] LABS: ANISOCYTOSIS 0; HELMET CELLS 0; HOWELL-JOLLY BODIES 0; MACROCYTOSIS 0; OVALOCYTE 0; PLATELET ESTIMATE NORMAL; ROULEAU 0; SICKELED CELLS 0; TARGET CELLS 0; TEAR DROP CELLS 0; TOXIC GRANULATION 0
[2021-02-13] MEDS: LORazepam 2 MG/ML SDV VIAL IVPUSH PRN (14:56)
[2021-02-13] MEDS: AMINO ACIDS 4.25%/D5W 2,000 ML IV SCH (16:04)
[2021-02-13] MEDS: BACITRACIN 15 GM TUBE TOPICAL OINTMENT TP SCH (16:05)
[2021-02-13] MEDS ORDERED: LORazepam 2 MG/ML SDV VIAL IVPUSH PRN (17:27)
[2021-02-13] MEDS: ATORVASTATIN CA 20 MG TABLET (FP) PO SCH (21:53)
[2021-02-13] MEDS: MELATONIN 5 MG TABLETS PO SCH (21:53)
[2021-02-13] MEDS: FAT EMULSION/OLIVE/SOY (CLINOLIPID) 250 ML EMULSION IV SCH (22:00)
[2021-02-14] MEDS: ATORVASTATIN CA 20 MG TABLET (FP) PO SCH (00:19)
[2021-02-14] MEDS: MELATONIN 5 MG TABLETS PO SCH (00:20)
[2021-02-14] MEDS: MEMANTINE HCL 10 MG TABLET (FP) PO SCH ×2 (00:20→12:37)
[2021-02-14] MEDS: QUEtiapine FUMARATE 25 MG TABLET PO SCH ×2 (00:21→12:37)
[2021-02-14 09:30] LABS: CALCIUM 9.1 mg/dL (8.5-10.1); MAGNESIUM 1.8 mg/dL (1.8-2.4)
[2021-02-14 09:34] LABS: CREATININE 1.1 mg/dL (0.55-1.3); PHOSPHOROUS 2.9 mg/dL (2.5-4.9)
[2021-02-14] MEDS: ASPIRIN 81 MG CHEWABLE TABLETS PO SCH (12:36)
[2021-02-14] MEDS: BACITRACIN 15 GM TUBE TOPICAL OINTMENT TP SCH (12:36)
[2021-02-14] MEDS: MULTIVIT-MINERALS ORAL LIQUID PO SCH (12:36)
[2021-02-14] MEDS: HEPARIN NA (PORCINE) 5,000 UNITS/ML 1ML VIAL SQ SCH ×2 (12:37→22:08)
[2021-02-14] MEDS: MIRTAZAPINE 15 MG TABLET (FP) PO SCH (12:37)
[2021-02-14] MEDS: OLANZapine 10 MG TABLET PO SCH (12:39)
[2021-02-14] MEDS: ALLOPURINOL 300 MG TABLET (FP) PO SCH (12:39)
[2021-02-14] MEDS: diazePAM CARPU-JECT 10 MG/2 ML DISP.SYRIN IVPUSH SCH (16:53)
[2021-02-14] MEDS ORDERED: ALLOPURINOL 300 MG TABLET (FP) PO ONE (17:56)
[2021-02-14] MEDS ORDERED: LORazepam 2 MG/ML SDV VIAL IM PRN (23:37)
[2021-02-15] MEDS: FAT EMULSION/OLIVE/SOY (CLINOLIPID) 250 ML EMULSION IV SCH (01:24)
[2021-02-15] MEDS: diazePAM CARPU-JECT 10 MG/2 ML DISP.SYRIN IVPUSH SCH ×2 (01:25→12:25)
[2021-02-15] MEDS: MELATONIN 5 MG TABLETS PO SCH (01:25)
[2021-02-15] MEDS: MEMANTINE HCL 10 MG TABLET (FP) PO SCH ×2 (01:25→12:25)
[2021-02-15] MEDS: ATORVASTATIN CA 20 MG TABLET (FP) PO SCH (01:25)
[2021-02-15] MEDS: QUEtiapine FUMARATE 25 MG TABLET PO SCH ×2 (01:25→12:25)
[2021-02-15 05:19] VITALS: BP 133/65; PULSE 104; TEMP 98.6
[2021-02-15] MEDS ORDERED: IMATINIB MESYLATE 100 MG TABLET PO SCH (10:00)
[2021-02-15] MEDS: BACITRACIN 15 GM TUBE TOPICAL OINTMENT TP SCH (12:24)
[2021-02-15] MEDS: ASPIRIN 81 MG CHEWABLE TABLETS PO SCH (12:24)
[2021-02-15] MEDS: AMINO ACIDS 4.25%/D5W 2,000 ML IV SCH (12:24)
[2021-02-15] MEDS: MULTIVIT-MINERALS ORAL LIQUID PO SCH (12:24)
[2021-02-15] MEDS: HEPARIN NA (PORCINE) 5,000 UNITS/ML 1ML VIAL SQ SCH (12:24)
[2021-02-15] MEDS: MIRTAZAPINE 15 MG TABLET (FP) PO SCH (12:25)
[2021-02-15] MEDS: OLANZapine 10 MG TABLET PO SCH (12:26)
== END 2021-02-15 16:35 | disposition home or self-care (01) | DRG 840 ==
LOC: JER 22:03 → JERBED 23:54 → J7W 01-28 15:08
PROVIDERS: ADMIT Internal Medicine; ATTEND Internal Medicine
DX: C92.10 Chronic myeloid leukemia, BCR/ABL-positive, not having achieved remission (principal); G93.41 Metabolic encephalopathy; N17.9 Acute kidney failure, unspecified; E87.2 Acidosis; F03.91 Unspecified dementia, unspecified severity, with behavioral disturbance; F25.9 Schizoaffective disorder, unspecified; I10 Essential (primary) hypertension; E78.5 Hyperlipidemia, unspecified; E83.39 Other disorders of phosphorus metabolism; R63.0 Anorexia; K59.00 Constipation, unspecified; N18.9 Chronic kidney disease, unspecified; D72.829 Elevated white blood cell count, unspecified; E86.1 Hypovolemia; E83.42 Hypomagnesemia
CPT/HCPCS: 36415; 70450-TC; 70551-TC; 71045-TC-FY; 71046-TC-FY; 71250-TC; 74176-TC; 80048; 80053; 80307; 81003; 82140; 82607; 82728; 82746; 82784; 82962; 83540; 83550; 83605; 83615; 83735; 84100; 84443; 84478; 84550; 85025; 85610; 85730; 86480; 86780; 87040; 87086; 88300-TC; 93005; 93010; 97116-GP; 97161-GP; 99285-25; C9803; J0131; J1644; U0003; U0005

== ENCOUNTER 2021-03-11 18:43 | Inpatient (IN) | payer OTHER ==
[2021-03-11] MEDS ORDERED: SODIUM CHLORIDE 0.9% 500 ML INFUS.BAG IV ONE (19:42)
[2021-03-11] MEDS ORDERED: LORazepam 2 MG/ML SDV VIAL ONE (19:56)
[2021-03-11] MEDS ORDERED: LORazepam 2 MG/ML SDV VIAL IM ONE (20:00)
[2021-03-11] MEDS ORDERED: HALOPERIDOL LACTATE 5 MG/ML ONE (20:23)
[2021-03-11] MEDS ORDERED: MIDAZOLAM HCL 5 MG/1 ML Single Dose Vial IVPUSH ONE ×2 (20:41→23:07)
[2021-03-11] MEDS ORDERED: MIDAZOLAM HCL 2 MG/2 ML SINGLE DOSE VIAL ONE ×2 (20:52→23:07)
[2021-03-11 21:33] LABS: BASO % 0.7 % (0-2.0); EOS % 1.3 % (0-4.5); HEMOGLOBIN 9.3 GM/dL (10.7-15.3); LYMPH % 24.2 % (8-40); MCH 30.3 pg (25.7-33.7); MCHC 33.2 g/dl (32.0-36.0); MEAN CELL VOLUME 91.3 fl (80-96); MEAN PLT VOLUME 10.5 fl (7.5-11.1); MONO % 2.7 % (3.8-10.2); NEUT % 71.1 % (42.8-82.8); RBC 3.06 M/mm3 (3.60-5.2); RDW 17.9 % (11.6-15.6); WHITE BLOOD COUNT 3.6 K/mm3 (4.0-10.0)
[2021-03-11 22:13] LABS: PLATELET COUNT 90 10^3/uL (134-434); PLATELET ESTIMATE DECREASED
[2021-03-11 22:33] LABS: CHLORIDE 109 mmol/L (98-107); SODIUM 142 mmol/L (136-145)
[2021-03-11 22:34] LABS: CALCIUM 8.2 mg/dL (8.5-10.1)
[2021-03-11 22:35] LABS: ALBUMIN 3.3 g/dl (3.4-5.0); ANION GAP 7 MMOL/L (8-16); BLOOD UREA NITROGEN 14.6 mg/dL (7-18); CO2 26 mmol/L (21-32); GLUCOSE,RANDOM 99 mg/dL (74-106)
[2021-03-11 22:37] LABS: PHOSPHOROUS 1.6 mg/dL (2.5-4.9); URIC ACID 2.9 mg/dL (2.6-7.2)
[2021-03-11 22:39] LABS: BILIRUBIN,TOTAL 0.5 mg/dL (0.2-1); CREATININE 1.2 mg/dL (0.55-1.3); SGOT/AST 37 U/L (15-37); SGPT/ALT 35 U/L (13-61); TOT PROT 6.8 g/dl (6.4-8.2)
[2021-03-11 22:40] LABS: ALK PHOS 114 U/L (45-117)
[2021-03-11] MEDS: SODIUM CHLORIDE 1,000 ML IV SCH (23:37)
[2021-03-12] MEDS ORDERED: ENOXAPARIN NA (PORCINE) 40 MG/0.4 ML DISP.SYRIN SQ SCH (01:30)
[2021-03-12] MEDS ORDERED: ENOXAPARIN NA (PORCINE) 80 MG/0.8 ML DISP.SYRIN SQ ONE (01:38)
[2021-03-12] MEDS ORDERED: LORazepam 2 MG/ML SDV VIAL ONE (01:38)
[2021-03-12] MEDS ORDERED: LORazepam 2 MG/ML SDV VIAL IVPUSH STA (01:42)
[2021-03-12] MEDS: QUEtiapine FUMARATE 25 MG TABLET PO SCH ×3 (01:44→22:00)
[2021-03-12] MEDS: LORazepam 1 MG TABLET PO SCH (01:45)
[2021-03-12] MEDS ORDERED: ENOXAPARIN NA (PORCINE) 40 MG/0.4 ML DISP.SYRIN SQ ONE ×2 (05:30→06:12)
[2021-03-12] MEDS: metFORMIN HCL 500 MG TABLET (FP) PO SCH ×2 (07:50→16:57)
[2021-03-12] MEDS ORDERED: LORazepam 0.5 MG TABLET PO SCH (10:00)
[2021-03-12] MEDS ORDERED: PT OWN MED DRAWER 7, Y5N ONE (10:40)
[2021-03-12] MEDS ORDERED: ATORVASTATIN CA 20 MG TABLET (FP) ONE (10:42)
[2021-03-12] MEDS ORDERED: ASPIRIN 81 MG CHEWABLE TABLETS ONE (10:42)
[2021-03-12] MEDS ORDERED: OLANZapine 10 MG TABLET ONE (10:42)
[2021-03-12] MEDS ORDERED: metFORMIN HCL 500 MG TABLET (FP) ONE (10:42)
[2021-03-12] MEDS ORDERED: QUEtiapine FUMARATE 25 MG TABLET ONE (10:43)
[2021-03-12] MEDS ORDERED: MIRTAZAPINE 15 MG TABLET (FP) ONE (10:43)
[2021-03-12] MEDS: ASPIRIN 81 MG CHEWABLE TABLETS PO SCH (10:49)
[2021-03-12] MEDS: MIRTAZAPINE 15 MG TABLET (FP) PO SCH (10:50)
[2021-03-12] MEDS: OLANZapine 10 MG TABLET PO SCH (10:50)
[2021-03-12] MEDS: ALLOPURINOL 300 MG TABLET (FP) PO SCH (10:50)
[2021-03-12] MEDS ORDERED: LORazepam 1 MG TABLET PO PRN (12:37)
[2021-03-12] MEDS ORDERED: LORazepam 1 MG TABLET ONE (14:45)
[2021-03-12] MEDS: NAPH,MB-DB/K PH,MBDB POWDER PACKET PO SCH ×3 (15:11→22:08)
[2021-03-12] MEDS ORDERED: HALOPERIDOL LACTATE 5 MG/ML ONE ×2 (15:19→15:43)
[2021-03-12] MEDS ORDERED: HALOPERIDOL LACTATE 5 MG/ML IM ONE ×2 (15:26→15:47)
[2021-03-12] MEDS ORDERED: LORazepam 2 MG/ML SDV VIAL IVPUSH PRN ×2 (17:37→17:39)
[2021-03-12 21:10] LABS: BLOOD UREA NITROGEN 16.5 mg/dL (7-18); CALCIUM 8.4 mg/dL (8.5-10.1)
[2021-03-12 21:12] LABS: ALBUMIN 3.1 g/dl (3.4-5.0)
[2021-03-12 21:14] LABS: CREATININE 1.2 mg/dL (0.55-1.3)
[2021-03-12 21:15] LABS: BILIRUBIN,TOTAL 0.3 mg/dL (0.2-1); TOT PROT 6.5 g/dl (6.4-8.2)
[2021-03-12 21:18] LABS: URIC ACID 3.4 mg/dL (2.6-7.2)
[2021-03-12] MEDS: MEMANTINE HCL 10 MG TABLET (FP) PO SCH (22:00)
[2021-03-12] MEDS: ATORVASTATIN CA 20 MG TABLET (FP) PO SCH (22:00)
[2021-03-12] MEDS: MELATONIN 5 MG TABLETS PO SCH (22:00)
[2021-03-13] MEDS: SODIUM CHLORIDE 1,000 ML IV SCH (01:46)
[2021-03-13] MEDS: LORazepam 1 MG TABLET PO SCH (01:47)
[2021-03-13] MEDS: metFORMIN HCL 500 MG TABLET (FP) PO SCH ×2 (06:08→17:28)
[2021-03-13] MEDS: ENOXAPARIN NA (PORCINE) 40 MG/0.4 ML DISP.SYRIN SQ SCH (15:15)
[2021-03-13] MEDS: OLANZapine 10 MG TABLET PO SCH ×2 (15:23→17:27)
[2021-03-13] MEDS: MIRTAZAPINE 15 MG TABLET (FP) PO SCH ×2 (15:23→17:27)
[2021-03-13] MEDS: QUEtiapine FUMARATE 25 MG TABLET PO SCH ×3 (15:23→21:32)
[2021-03-13] MEDS: ALLOPURINOL 300 MG TABLET (FP) PO SCH ×2 (15:23→17:27)
[2021-03-13] MEDS: ASPIRIN 81 MG CHEWABLE TABLETS PO SCH ×2 (15:23→17:27)
[2021-03-13] MEDS: MELATONIN 5 MG TABLETS PO SCH (21:40)
[2021-03-13] MEDS: MEMANTINE HCL 10 MG TABLET (FP) PO SCH (21:40)
[2021-03-13] MEDS: ATORVASTATIN CA 20 MG TABLET (FP) PO SCH (21:40)
[2021-03-14] MEDS: OLANZapine 10 MG TABLET PO SCH (09:43)
[2021-03-14] MEDS: MIRTAZAPINE 15 MG TABLET (FP) PO SCH (09:43)
[2021-03-14] MEDS: ASPIRIN 81 MG CHEWABLE TABLETS PO SCH (09:44)
[2021-03-14] MEDS: ALLOPURINOL 300 MG TABLET (FP) PO SCH (09:44)
[2021-03-14] MEDS: QUEtiapine FUMARATE 25 MG TABLET PO SCH ×2 (09:44→21:20)
[2021-03-14] MEDS: ENOXAPARIN NA (PORCINE) 40 MG/0.4 ML DISP.SYRIN SQ SCH (09:44)
[2021-03-14] MEDS: MELATONIN 5 MG TABLETS PO SCH (21:20)
[2021-03-14] MEDS: MEMANTINE HCL 10 MG TABLET (FP) PO SCH (21:20)
[2021-03-14] MEDS: ATORVASTATIN CA 20 MG TABLET (FP) PO SCH (21:20)
[2021-03-14 21:46] LABS: BASO % 1.3 % (0-2.0); EOS % 2.8 % (0-4.5); HEMATOCRIT 29.6 % (32.4-45.2); HEMOGLOBIN 9.6 GM/dL (10.7-15.3); LYMPH % 37.3 % (8-40); MCH 30.4 pg (25.7-33.7); MCHC 32.6 g/dl (32.0-36.0); MEAN CELL VOLUME 93.2 fl (80-96); MEAN PLT VOLUME 9.8 fl (7.5-11.1); MONO % 4.9 % (3.8-10.2); NEUT % 53.7 % (42.8-82.8); PLATELET COUNT 71 10^3/uL (134-434); RBC 3.17 M/mm3 (3.60-5.2); RDW 18.4 % (11.6-15.6); WHITE BLOOD COUNT 2.5 K/mm3 (4.0-10.0)
[2021-03-14 22:07] LABS: BLOOD UREA NITROGEN 15.2 mg/dL (7-18); CALCIUM 8.5 mg/dL (8.5-10.1)
[2021-03-14 22:10] LABS: PHOSPHOROUS 2.4 mg/dL (2.5-4.9)
[2021-03-14 22:12] LABS: BILIRUBIN,TOTAL 0.5 mg/dL (0.2-1); TOT PROT 6.5 g/dl (6.4-8.2)
[2021-03-14 23:43] LABS: URIC ACID 4.2 mg/dL (2.6-7.2)
[2021-03-15] MEDS: SODIUM CHLORIDE 1,000 ML IV SCH (02:23)
[2021-03-15] MEDS: OLANZapine 10 MG TABLET PO SCH (10:07)
[2021-03-15] MEDS: QUEtiapine FUMARATE 25 MG TABLET PO SCH (10:07)
[2021-03-15] MEDS: MIRTAZAPINE 15 MG TABLET (FP) PO SCH (10:07)
[2021-03-15] MEDS: ASPIRIN 81 MG CHEWABLE TABLETS PO SCH (10:07)
[2021-03-15] MEDS: ALLOPURINOL 300 MG TABLET (FP) PO SCH (10:07)
[2021-03-15] MEDS: ENOXAPARIN NA (PORCINE) 40 MG/0.4 ML DISP.SYRIN SQ SCH (10:08)
[2021-03-15 12:49] LABS: BASO % 1.2 % (0-2.0); EOS % 2.7 % (0-4.5); HEMATOCRIT 27.3 % (32.4-45.2); LYMPH % 19.4 % (8-40); MCH 30.4 pg (25.7-33.7); MEAN CELL VOLUME 92.3 fl (80-96); MEAN PLT VOLUME 9.5 fl (7.5-11.1); MONO % 4.1 % (3.8-10.2); NEUT % 72.6 % (42.8-82.8); PLATELET COUNT 61 10^3/uL (134-434); RBC 2.95 M/mm3 (3.60-5.2); RDW 19.1 % (11.6-15.6)
[2021-03-15 13:13] LABS: ALBUMIN 3.1 g/dl (3.4-5.0); CALCIUM 8.3 mg/dL (8.5-10.1)
[2021-03-15 13:14] LABS: BLOOD UREA NITROGEN 19.4 mg/dL (7-18)
[2021-03-15 13:16] LABS: CREATININE 1.1 mg/dL (0.55-1.3)
[2021-03-15 13:18] LABS: BILIRUBIN,TOTAL 0.6 mg/dL (0.2-1); TOT PROT 6.5 g/dl (6.4-8.2)
[2021-03-15 13:19] LABS: WHITE BLOOD COUNT 1.9 K/mm3 (4.0-10.0)
[2021-03-15 14:19] LABS: ANISOCYTOSIS 1+; MACROCYTOSIS 1+; PLATELET ESTIMATE DECREASED
[2021-03-15] MEDS: ATORVASTATIN CA 20 MG TABLET (FP) PO SCH (21:21)
[2021-03-15] MEDS: MELATONIN 5 MG TABLETS PO SCH (21:21)
[2021-03-15] MEDS: MEMANTINE HCL 10 MG TABLET (FP) PO SCH (21:21)
[2021-03-16] MEDS ORDERED: LORazepam 2 MG/ML SDV VIAL IM ONE (05:42)
[2021-03-16] MEDS: SODIUM CHLORIDE 1,000 ML IV SCH (06:49)
[2021-03-16 10:36] LABS: BASO % 0.5 % (0-2.0); EOS % 0.5 % (0-4.5); HEMATOCRIT 26.9 % (32.4-45.2); HEMOGLOBIN 9.2 GM/dL (10.7-15.3); LYMPH % 18.4 % (8-40); MCH 31.8 pg (25.7-33.7); MCHC 34.2 g/dl (32.0-36.0); MEAN CELL VOLUME 92.9 fl (80-96); MONO % 2.9 % (3.8-10.2); NEUT % 77.7 % (42.8-82.8); PLATELET COUNT 73 10^3/uL (134-434); RDW 18.5 % (11.6-15.6); WHITE BLOOD COUNT 3.1 K/mm3 (4.0-10.0)
[2021-03-16 10:58] LABS: ALBUMIN 3.3 g/dl (3.4-5.0)
[2021-03-16 10:59] LABS: CALCIUM 8.6 mg/dL (8.5-10.1)
[2021-03-16 11:00] LABS: BLOOD UREA NITROGEN 24.5 mg/dL (7-18)
[2021-03-16 11:02] LABS: CREATININE 1.2 mg/dL (0.55-1.3); MAGNESIUM 1.8 mg/dL (1.8-2.4)
[2021-03-16 11:03] LABS: BILIRUBIN,TOTAL 0.8 mg/dL (0.2-1); TOT PROT 6.9 g/dl (6.4-8.2)
[2021-03-16] MEDS ORDERED: PT OWN MED DRAWER 7, Y5N ONE ×2 (12:12→21:16)
[2021-03-16] MEDS: ENOXAPARIN NA (PORCINE) 40 MG/0.4 ML DISP.SYRIN SQ SCH (12:13)
[2021-03-16] MEDS: MIRTAZAPINE 15 MG TABLET (FP) PO SCH (12:14)
[2021-03-16] MEDS: ASPIRIN 81 MG CHEWABLE TABLETS PO SCH (12:15)
[2021-03-16] MEDS: ALLOPURINOL 300 MG TABLET (FP) PO SCH (12:17)
[2021-03-16] MEDS ORDERED: HALOPERIDOL LACTATE 5 MG/ML IM ONE (12:35)
[2021-03-16] MEDS ORDERED: QUEtiapine FUMARATE 25 MG TABLET ONE ×2 (15:04→21:08)
[2021-03-16] MEDS: LORazepam 2 MG/ML SDV VIAL IM PRN (15:06)
[2021-03-16] MEDS: QUEtiapine FUMARATE 50 MG TABLET PO SCH ×2 (15:07→21:17)
[2021-03-16] MEDS: MEMANTINE HCL 10 MG TABLET (FP) PO SCH (21:13)
[2021-03-16] MEDS: MELATONIN 5 MG TABLETS PO SCH (21:14)
[2021-03-16] MEDS: ATORVASTATIN CA 20 MG TABLET (FP) PO SCH (21:14)
[2021-03-17] MEDS ORDERED: QUEtiapine FUMARATE 25 MG TABLET ONE ×2 (08:28→22:22)
[2021-03-17] MEDS ORDERED: PT OWN MED DRAWER 7, Y5N ONE (08:28)
[2021-03-17 10:15] LABS: HEMATOCRIT 25.7 % (32.4-45.2); HEMOGLOBIN 8.8 GM/dL (10.7-15.3); MCH 31.6 pg (25.7-33.7); MCHC 34.3 g/dl (32.0-36.0); MEAN CELL VOLUME 92.4 fl (80-96); MEAN PLT VOLUME 9.6 fl (7.5-11.1); PLATELET COUNT 67 10^3/uL (134-434); RBC 2.79 M/mm3 (3.60-5.2); RDW 18.4 % (11.6-15.6)
[2021-03-17 10:31] LABS: WHITE BLOOD COUNT 1.9 K/mm3 (4.0-10.0)
[2021-03-17 10:33] LABS: ALBUMIN 3.3 g/dl (3.4-5.0); BLOOD UREA NITROGEN 22.5 mg/dL (7-18); CALCIUM 8.7 mg/dL (8.5-10.1)
[2021-03-17] MEDS: QUEtiapine FUMARATE 50 MG TABLET PO SCH (10:34)
[2021-03-17 10:36] LABS: CREATININE 1.1 mg/dL (0.55-1.3)
[2021-03-17 10:38] LABS: BILIRUBIN,TOTAL 0.5 mg/dL (0.2-1); TOT PROT 6.5 g/dl (6.4-8.2)
[2021-03-17] MEDS: SODIUM CHLORIDE 1,000 ML IV SCH (11:07)
[2021-03-17] MEDS: ENOXAPARIN NA (PORCINE) 40 MG/0.4 ML DISP.SYRIN SQ SCH (11:07)
[2021-03-17] MEDS: ASPIRIN 81 MG CHEWABLE TABLETS PO SCH (11:08)
[2021-03-17] MEDS: ALLOPURINOL 300 MG TABLET (FP) PO SCH (11:08)
[2021-03-17] MEDS: MIRTAZAPINE 15 MG TABLET (FP) PO SCH (11:08)
[2021-03-17 12:18] LABS: ANISOCYTOSIS 1+; MACROCYTOSIS 0; PLATELET ESTIMATE DECREASED
[2021-03-18] MEDS: MELATONIN 5 MG TABLETS PO SCH ×2 (01:07→21:09)
[2021-03-18] MEDS: MEMANTINE HCL 10 MG TABLET (FP) PO SCH ×2 (01:08→21:10)
[2021-03-18] MEDS: ATORVASTATIN CA 20 MG TABLET (FP) PO SCH ×2 (01:08→21:48)
[2021-03-18] MEDS: QUEtiapine FUMARATE 50 MG TABLET PO SCH ×3 (01:09→21:10)
[2021-03-18] MEDS: SODIUM CHLORIDE 1,000 ML IV SCH (01:09)
[2021-03-18] MEDS ORDERED: QUEtiapine FUMARATE 25 MG TABLET ONE ×2 (10:00→19:45)
[2021-03-18] MEDS: ALLOPURINOL 300 MG TABLET (FP) PO SCH (10:11)
[2021-03-18] MEDS: ASPIRIN 81 MG CHEWABLE TABLETS PO SCH (10:12)
[2021-03-18] MEDS: ENOXAPARIN NA (PORCINE) 40 MG/0.4 ML DISP.SYRIN SQ SCH (10:12)
[2021-03-18] MEDS: MIRTAZAPINE 15 MG TABLET (FP) PO SCH (10:12)
[2021-03-18 10:59] LABS: HEMATOCRIT 30.4 % (32.4-45.2); HEMOGLOBIN 10.3 GM/dL (10.7-15.3); MCH 31.6 pg (25.7-33.7); MCHC 33.7 g/dl (32.0-36.0); MEAN CELL VOLUME 93.5 fl (80-96); MEAN PLT VOLUME 9.6 fl (7.5-11.1); PLATELET COUNT 79 10^3/uL (134-434); RBC 3.25 M/mm3 (3.60-5.2); WHITE BLOOD COUNT 2.6 K/mm3 (4.0-10.0)
[2021-03-18 11:14] LABS: BLOOD UREA NITROGEN 18.2 mg/dL (7-18); CALCIUM 8.7 mg/dL (8.5-10.1)
[2021-03-18 11:15] LABS: ALBUMIN 3.4 g/dl (3.4-5.0)
[2021-03-18 11:19] LABS: BILIRUBIN,TOTAL 0.8 mg/dL (0.2-1); TOT PROT 7.1 g/dl (6.4-8.2)
[2021-03-18 14:16] VITALS: BMI 27.4
[2021-03-18 15:05] LABS: ANISOCYTOSIS 1+; MACROCYTOSIS 0; OVALOCYTE 1+; PLATELET ESTIMATE DECREASED
[2021-03-19] MEDS: LORazepam 2 MG/ML SDV VIAL IM PRN ×2 (01:03→17:13)
[2021-03-19 09:55] LABS: CALCIUM 8.8 mg/dL (8.5-10.1)
[2021-03-19 09:56] LABS: BLOOD UREA NITROGEN 16.4 mg/dL (7-18)
[2021-03-19] MEDS ORDERED: QUEtiapine FUMARATE 25 MG TABLET ONE ×2 (10:21→19:39)
[2021-03-19] MEDS: ASPIRIN 81 MG CHEWABLE TABLETS PO SCH (10:28)
[2021-03-19] MEDS: ALLOPURINOL 300 MG TABLET (FP) PO SCH (10:28)
[2021-03-19] MEDS: MIRTAZAPINE 15 MG TABLET (FP) PO SCH (10:28)
[2021-03-19] MEDS: ENOXAPARIN NA (PORCINE) 40 MG/0.4 ML DISP.SYRIN SQ SCH (10:29)
[2021-03-19] MEDS: QUEtiapine FUMARATE 50 MG TABLET PO SCH ×2 (10:29→21:21)
[2021-03-19] MEDS: SODIUM CHLORIDE 1,000 ML IV SCH (10:29)
[2021-03-19 11:03] LABS: BASO % 1.4 % (0-2.0); EOS % 6.2 % (0-4.5); HEMATOCRIT 31.7 % (32.4-45.2); HEMOGLOBIN 10.4 GM/dL (10.7-15.3); MCH 31.2 pg (25.7-33.7); MCHC 32.9 g/dl (32.0-36.0); MEAN CELL VOLUME 94.6 fl (80-96); MEAN PLT VOLUME 10.1 fl (7.5-11.1); MONO % 6.3 % (3.8-10.2); NEUT % 41.1 % (42.8-82.8); PLATELET COUNT 88 10^3/uL (134-434); RBC 3.35 M/mm3 (3.60-5.2); RDW 19.3 % (11.6-15.6)
[2021-03-19] MEDS ORDERED: POTASSIUM CHLORIDE TABS 20 MEQ TABLET.ER (FP) PO ONE (14:53)
[2021-03-19 20:22] LABS: EPI CELLS 11 /uL (0-25.1); HYALINE CASTS 1 /uL (0-3.1); PH,URINE 5.5 (5.0-8.0); URINE APPEARANCE CLOUDY; URINE BACTERIA 952 /uL (0-1359); URINE BILIRUBIN NEGATIVE (NEGATIVE); URINE COLOR DK YELLOW; URINE GLUCOSE (UA) NEGATIVE (NEGATIVE); URINE KETONE TRACE (NEGATIVE); URINE LEUK ESTERASE 2+ (NEGATIVE); URINE NITRITE NEGATIVE (NEGATIVE); URINE PROTEIN 1+ (NEGATIVE); URINE RBC 30 /uL (0-23.9); URINE WBC 1333 /uL (0-25.8)
[2021-03-19] MEDS: ATORVASTATIN CA 20 MG TABLET (FP) PO SCH (21:21)
[2021-03-19] MEDS: MEMANTINE HCL 10 MG TABLET (FP) PO SCH (21:21)
[2021-03-19] MEDS: MELATONIN 5 MG TABLETS PO SCH (21:21)
[2021-03-20 09:56] LABS: HEMATOCRIT 29.1 % (32.4-45.2); HEMOGLOBIN 9.8 GM/dL (10.7-15.3); MCH 31.7 pg (25.7-33.7); MCHC 33.8 g/dl (32.0-36.0); MEAN CELL VOLUME 93.9 fl (80-96); MEAN PLT VOLUME 9.6 fl (7.5-11.1); PLATELET COUNT 94 10^3/uL (134-434); RDW 20.5 % (11.6-15.6)
[2021-03-20] MEDS ORDERED: QUEtiapine FUMARATE 25 MG TABLET ONE (09:56)
[2021-03-20] MEDS: SODIUM CHLORIDE 1,000 ML IV SCH (10:04)
[2021-03-20] MEDS: ENOXAPARIN NA (PORCINE) 40 MG/0.4 ML DISP.SYRIN SQ SCH (10:05)
[2021-03-20] MEDS: ASPIRIN 81 MG CHEWABLE TABLETS PO SCH (10:06)
[2021-03-20] MEDS: QUEtiapine FUMARATE 50 MG TABLET PO SCH ×2 (10:06→21:54)
[2021-03-20] MEDS: MIRTAZAPINE 15 MG TABLET (FP) PO SCH (10:06)
[2021-03-20] MEDS: ALLOPURINOL 300 MG TABLET (FP) PO SCH (10:07)
[2021-03-20 10:16] LABS: CALCIUM 8.8 mg/dL (8.5-10.1)
[2021-03-20 10:17] LABS: ALBUMIN 3.5 g/dl (3.4-5.0)
[2021-03-20 10:21] LABS: BILIRUBIN,TOTAL 0.5 mg/dL (0.2-1); TOT PROT 6.8 g/dl (6.4-8.2)
[2021-03-20 11:00] LABS: ANISOCYTOSIS 1+; MACROCYTOSIS 0; PLATELET ESTIMATE DECREASED
[2021-03-20] MEDS: MELATONIN 5 MG TABLETS PO SCH (21:54)
[2021-03-20] MEDS: ATORVASTATIN CA 20 MG TABLET (FP) PO SCH (21:54)
[2021-03-20] MEDS: MEMANTINE HCL 10 MG TABLET (FP) PO SCH (21:54)
[2021-03-21 09:28] LABS: BASO % 1.4 % (0-2.0); EOS % 3.2 % (0-4.5); HEMATOCRIT 31.6 % (32.4-45.2); HEMOGLOBIN 10.5 GM/dL (10.7-15.3); LYMPH % 48.6 % (8-40); MCH 31.3 pg (25.7-33.7); MCHC 33.2 g/dl (32.0-36.0); MEAN PLT VOLUME 9.3 fl (7.5-11.1); MONO % 9.7 % (3.8-10.2); NEUT % 37.1 % (42.8-82.8); PLATELET COUNT 105 10^3/uL (134-434); RBC 3.36 M/mm3 (3.60-5.2); RDW 19.9 % (11.6-15.6); WHITE BLOOD COUNT 2.5 K/mm3 (4.0-10.0)
[2021-03-21 09:46] LABS: CALCIUM 8.9 mg/dL (8.5-10.1)
[2021-03-21 09:47] LABS: ALBUMIN 3.9 g/dl (3.4-5.0); BLOOD UREA NITROGEN 12.9 mg/dL (7-18); MAGNESIUM 2.2 mg/dL (1.8-2.4)
[2021-03-21 09:50] LABS: CREATININE 0.9 mg/dL (0.55-1.3)
[2021-03-21 09:52] LABS: BILIRUBIN,TOTAL 0.6 mg/dL (0.2-1); TOT PROT 7.2 g/dl (6.4-8.2)
[2021-03-21] MEDS ORDERED: QUEtiapine FUMARATE 25 MG TABLET ONE ×2 (10:21→21:57)
[2021-03-21] MEDS ORDERED: PT OWN MED DRAWER 7, Y5N ONE (10:22)
[2021-03-21] MEDS: ENOXAPARIN NA (PORCINE) 40 MG/0.4 ML DISP.SYRIN SQ SCH (10:32)
[2021-03-21] MEDS: QUEtiapine FUMARATE 50 MG TABLET PO SCH (12:19)
[2021-03-21] MEDS: MIRTAZAPINE 15 MG TABLET (FP) PO SCH (12:19)
[2021-03-21] MEDS: ASPIRIN 81 MG CHEWABLE TABLETS PO SCH (12:19)
[2021-03-21] MEDS: ALLOPURINOL 300 MG TABLET (FP) PO SCH (12:19)
[2021-03-22] MEDS: ATORVASTATIN CA 20 MG TABLET (FP) PO SCH ×2 (03:03→22:23)
[2021-03-22] MEDS: MEMANTINE HCL 10 MG TABLET (FP) PO SCH ×2 (03:04→22:23)
[2021-03-22] MEDS: MELATONIN 5 MG TABLETS PO SCH ×2 (03:04→22:23)
[2021-03-22] MEDS: QUEtiapine FUMARATE 50 MG TABLET PO SCH ×3 (03:04→22:23)
[2021-03-22] MEDS ORDERED: QUEtiapine FUMARATE 25 MG TABLET ONE ×2 (10:17→21:24)
[2021-03-22] MEDS: ASPIRIN 81 MG CHEWABLE TABLETS PO SCH (10:21)
[2021-03-22] MEDS: ALLOPURINOL 300 MG TABLET (FP) PO SCH (10:21)
[2021-03-22] MEDS: MIRTAZAPINE 15 MG TABLET (FP) PO SCH (10:21)
[2021-03-22] MEDS: ENOXAPARIN NA (PORCINE) 40 MG/0.4 ML DISP.SYRIN SQ SCH (10:22)
[2021-03-23] MEDS ORDERED: PT OWN MED DRAWER 7, Y5N ONE (10:23)
[2021-03-23] MEDS: MIRTAZAPINE 15 MG TABLET (FP) PO SCH (10:39)
[2021-03-23] MEDS: ASPIRIN 81 MG CHEWABLE TABLETS PO SCH (10:39)
[2021-03-23] MEDS: QUEtiapine FUMARATE 50 MG TABLET PO SCH ×2 (10:40→21:35)
[2021-03-23] MEDS: ALLOPURINOL 300 MG TABLET (FP) PO SCH (10:40)
[2021-03-23] MEDS: ENOXAPARIN NA (PORCINE) 40 MG/0.4 ML DISP.SYRIN SQ SCH (10:40)
[2021-03-23 12:51] LABS: BASO % 3.5 % (0-2.0); EOS % 4.6 % (0-4.5); HEMATOCRIT 34.7 % (32.4-45.2); HEMOGLOBIN 11.3 GM/dL (10.7-15.3); MCH 31.3 pg (25.7-33.7); MCHC 32.6 g/dl (32.0-36.0); MEAN CELL VOLUME 95.8 fl (80-96); MEAN PLT VOLUME 9.4 fl (7.5-11.1); MONO % 11.2 % (3.8-10.2); NEUT % 32.7 % (42.8-82.8); PLATELET COUNT 137 10^3/uL (134-434); RBC 3.62 M/mm3 (3.60-5.2); WHITE BLOOD COUNT 2.2 K/mm3 (4.0-10.0)
[2021-03-23] MEDS ORDERED: QUEtiapine FUMARATE 25 MG TABLET ONE (20:59)
[2021-03-23] MEDS: MEMANTINE HCL 10 MG TABLET (FP) PO SCH (21:35)
[2021-03-23] MEDS: ATORVASTATIN CA 20 MG TABLET (FP) PO SCH (21:49)
[2021-03-23] MEDS: MELATONIN 5 MG TABLETS PO SCH (21:49)
[2021-03-24] MEDS: MIRTAZAPINE 15 MG TABLET (FP) PO SCH (11:22)
[2021-03-24] MEDS: ENOXAPARIN NA (PORCINE) 40 MG/0.4 ML DISP.SYRIN SQ SCH (11:22)
[2021-03-24] MEDS: ASPIRIN 81 MG CHEWABLE TABLETS PO SCH (11:22)
[2021-03-24] MEDS: ALLOPURINOL 300 MG TABLET (FP) PO SCH (11:22)
[2021-03-24] MEDS: QUEtiapine FUMARATE 50 MG TABLET PO SCH ×2 (13:40→21:07)
[2021-03-24] MEDS ORDERED: QUEtiapine FUMARATE 25 MG TABLET ONE (21:00)
[2021-03-24] MEDS: MEMANTINE HCL 10 MG TABLET (FP) PO SCH (21:07)
[2021-03-24] MEDS: ATORVASTATIN CA 20 MG TABLET (FP) PO SCH (21:10)
[2021-03-24] MEDS: MELATONIN 5 MG TABLETS PO SCH (21:10)
[2021-03-25 06:31] VITALS: BP 112/65; PULSE 72; TEMP 97.6
[2021-03-25] MEDS ORDERED: QUEtiapine FUMARATE 25 MG TABLET ONE (09:10)
[2021-03-25] MEDS: ASPIRIN 81 MG CHEWABLE TABLETS PO SCH ×2 (09:13→12:31)
[2021-03-25] MEDS: ENOXAPARIN NA (PORCINE) 40 MG/0.4 ML DISP.SYRIN SQ SCH (09:13)
[2021-03-25] MEDS: MIRTAZAPINE 15 MG TABLET (FP) PO SCH ×2 (09:13→12:52)
[2021-03-25] MEDS: QUEtiapine FUMARATE 50 MG TABLET PO SCH ×2 (09:13→12:52)
[2021-03-25] MEDS: ALLOPURINOL 300 MG TABLET (FP) PO SCH ×2 (09:13→12:31)
== END 2021-03-25 18:48 | DRG 884 ==
LOC: JER 18:43 → JERBED 23:39 → INTOOBSV 23:39 → J5S 03-12 21:30 → OBSVTOIN 03-13 10:22 → INTOOBSV 03-13 10:22
PROVIDERS: ATTEND Nurse Practitioner Family
DX: F03.91 Unspecified dementia, unspecified severity, with behavioral disturbance (principal); C92.10 Chronic myeloid leukemia, BCR/ABL-positive, not having achieved remission; D61.818 Other pancytopenia; F25.9 Schizoaffective disorder, unspecified; E11.9 Type 2 diabetes mellitus without complications; I10 Essential (primary) hypertension; R22.0 Localized swelling, mass and lump, head; T45.1X5A Adverse effect of antineoplastic and immunosuppressive drugs, initial encounter; Z78.9 Other specified health status; R50.9 Fever, unspecified
CPT/HCPCS: 36415; 80048; 80053; 81003; 82550; 82553; 82962; 83036; 83615; 83735; 84100; 84484; 84550; 85025; 86850; 86900; 86901; 87040; 87086; 93005; 93010; 97116-GP; 97161-GP; 99285-25; C9803; G0378; U0003; U0005

== ENCOUNTER 2021-08-10 10:41 | Emergency (ER) | payer OTHER ==
[2021-08-10 10:59] VITALS: BMI 29.2
[2021-08-10 12:39] LABS: HEMATOCRIT 20.2 % (32.4-45.2); MCH 27.3 pg (25.7-33.7); MCHC 29.8 g/dl (32.0-36.0); MEAN CELL VOLUME 91.5 fl (80-96); MEAN PLT VOLUME 10.6 fl (7.5-11.1); RDW 20.3 % (11.6-15.6)
[2021-08-10 12:50] LABS: PLATELET COUNT 10 10^3/uL (134-434); WHITE BLOOD COUNT 103.6 K/mm3 (4.0-10.0)
[2021-08-10 12:58] LABS: EPI CELLS >36 /uL (0-25.1); HYALINE CASTS 43 /uL (0-3.1); URINE APPEARANCE TURBID; URINE BILIRUBIN 1+ (NEGATIVE); URINE COLOR DK YELLOW; URINE GLUCOSE (UA) NEGATIVE (NEGATIVE); URINE KETONE NEGATIVE (NEGATIVE); URINE LEUK ESTERASE NEGATIVE (NEGATIVE); URINE NITRITE NEGATIVE (NEGATIVE); URINE PROTEIN 2+ (NEGATIVE); URINE RBC 22 /uL (0-23.9)
[2021-08-10] MEDS ORDERED: MIDAZOLAM HCL 2 MG/2 ML SINGLE DOSE VIAL IVPUSH ONE (13:01)
[2021-08-10] MEDS ORDERED: MIDAZOLAM HCL 2 MG/2 ML SINGLE DOSE VIAL ONE (13:02)
[2021-08-10 13:42] LABS: URINE BACTERIA MODERATED /uL (0-1359); URINE WBC FEW /uL (0-25.8)
[2021-08-10 13:43] LABS: URINE CRYSTALS MANY AMORPHOUS URATE /hpf
[2021-08-10 13:57] LABS: ANISOCYTOSIS 3+; MACROCYTOSIS 2+; ROULEAU 2+
[2021-08-10 14:41] LABS: INR 2.23 (0.83-1.09); PROTHROMBIN TIME (PATIENT) 25.8 SEC (9.7-13.0)
[2021-08-10 14:44] LABS: ACTIVATED PTT 45.4 SECONDS (25.2-36.5)
[2021-08-10 14:45] LABS: MAGNESIUM 2.2 mg/dL (1.8-2.4)
[2021-08-10 14:49] LABS: PHOSPHOROUS 7.6 mg/dL (2.5-4.9)
[2021-08-10 14:50] LABS: ALBUMIN 2.9 g/dl (3.4-5.0); ALK PHOS 432 U/L (45-117); ANION GAP 17 MMOL/L (8-16); BLOOD UREA NITROGEN 53.8 mg/dL (7-18); CALCIUM 8.4 mg/dL (8.5-10.1); CHLORIDE 102 mmol/L (98-107); CO2 18 mmol/L (21-32); CREATININE 3.1 mg/dL (0.55-1.3); GLUCOSE,RANDOM 311 mg/dL (74-106); SGOT/AST 518 U/L (15-37); SGPT/ALT 272 U/L (13-61); SODIUM 137 mmol/L (136-145); TOT PROT 7.6 g/dl (6.4-8.2)
[2021-08-10] MEDS ORDERED: VANCOMYCIN 1 GM in D5W (PRE-DOCKED) 1,000 MG/250 ML IVPB ONE (15:06)
[2021-08-10] MEDS ORDERED: CEFEPIME HCL/D5W 2 GM/50 ML BAG IVPB ONE (15:06)
[2021-08-10] MEDS ORDERED: VANCOMYCIN 1 GRAM (PRE-DOCKED) 1,000 MG/250 ML BAG IVPB ONE (15:21)
[2021-08-10] MEDS ORDERED: CEFEPIME 2 GM/100 ML BAG IVPB ONE (15:22)
[2021-08-10] MEDS ORDERED: SODIUM CHLORIDE 0.9% 500 ML INFUS.BAG IV ONE (15:31)
[2021-08-10] MEDS ORDERED: ACETAMINOPHEN INJECTION 100 ML IVPB ONE ×2 (15:49→23:57)
[2021-08-10] MEDS ORDERED: ACETAMINOPHEN 1000 MG/100 ML BAG IVPB ONE ×2 (15:49→23:58)
[2021-08-10] MEDS ORDERED: HYDROXYUREA 500 MG CAPSULE PO ONE (16:00)
[2021-08-10] MEDS ORDERED: ALLOPURINOL 100 MG TABLET (FP) PO ONE (16:00)
[2021-08-10 16:52] LABS: URIC ACID 22.6 mg/dL (2.6-7.2)
[2021-08-10 17:15] LABS: LDH 2702 U/L (84-246)
[2021-08-10 22:25] VITALS: TEMP 100.6
[2021-08-11 00:56] VITALS: BP 103/53
[2021-08-11 01:04] VITALS: PULSE 105
== END 2021-08-11 01:11 | disposition short-term general hospital (02) ==
LOC: JER 10:41
PROC: 3E0333Z Introduction of Anti-inflammatory into Peripheral Vein, Percutaneous Approach (ICD-10-PCS; principal; 2021-08-10)
PROC: 3E0333Z Introduction of Anti-inflammatory into Peripheral Vein, Percutaneous Approach (ICD-10-PCS; 2021-08-10)
PROC: 3E03329 Introduction of Other Anti-infective into Peripheral Vein, Percutaneous Approach (ICD-10-PCS; 2021-08-10)
PROC: 3E03329 Introduction of Other Anti-infective into Peripheral Vein, Percutaneous Approach (ICD-10-PCS; 2021-08-10)
DX: C92.12 Chronic myeloid leukemia, BCR/ABL-positive, in relapse (principal)
CPT/HCPCS: 36415; 36430; 70450-TC; 71045-TC-FY; 71250-TC; 72125-TC; 80053; 81003; 82962; 83615; 83735; 84100; 84484; 84550; 85025; 85384; 85610; 85730; 86850; 86900; 86901; 86922; 87040; 87086; 87804; 87807; 93005; 93010; 96374; 96375; 99285-25; C9803-CS; P9034; P9058; U0003; U0005

== ENCOUNTER 2021-09-17 12:50 | Emergency (ER) | payer OTHER ==
[2021-09-17 14:10] VITALS: TEMP 99.7; BMI 27.4
[2021-09-17 15:38] LABS: BASO % 0.2 % (0-2.0); EOS % 0.1 % (0-4.5); HEMATOCRIT 28.8 % (32.4-45.2); HEMOGLOBIN 9.8 GM/dL (10.7-15.3); MCH 30.2 pg (25.7-33.7); MCHC 33.8 g/dl (32.0-36.0); MEAN CELL VOLUME 89.3 fl (80-96); MEAN PLT VOLUME 6.3 fl (7.5-11.1); MONO % 6.2 % (3.8-10.2); NEUT % 71.5 % (42.8-82.8); PLATELET COUNT 220 10^3/uL (134-434); RBC 3.23 M/mm3 (3.60-5.2); WHITE BLOOD COUNT 8.2 K/mm3 (4.0-10.0)
[2021-09-17 15:48] LABS: BLOOD UREA NITROGEN 22.8 mg/dL (7-18); CALCIUM 8.4 mg/dL (8.5-10.1)
[2021-09-17 15:49] LABS: ALBUMIN 3.5 g/dl (3.4-5.0)
[2021-09-17 15:52] LABS: CREATININE 1.6 mg/dL (0.55-1.3)
[2021-09-17 15:53] LABS: BILIRUBIN,TOTAL 0.8 mg/dL (0.2-1); TOT PROT 7.8 g/dl (6.4-8.2)
[2021-09-17 17:04] VITALS: BP 111/79; PULSE 96
== END 2021-09-17 17:09 | disposition home or self-care (01) ==
LOC: JER 12:50
DX: C92.10 Chronic myeloid leukemia, BCR/ABL-positive, not having achieved remission (principal)
CPT/HCPCS: 36415; 71045-TC-FY; 80053; 85025; 86850; 86900; 86901; 93005; 93010; 99285-25

== ENCOUNTER 2021-09-26 11:51 | Inpatient (IN) | payer OTHER ==
[2021-09-26 12:42] VITALS: BMI 24.0
[2021-09-26] MEDS ORDERED: AZITHROMYCIN IVPB 500 MG in DEXTROSE 5%-WATER - 250 ML IVPB ONE (12:50)
[2021-09-26] MEDS ORDERED: VANCOMYCIN 1 GM in D5W (PRE-DOCKED) 1,000 MG/250 ML IVPB ONE (12:52)
[2021-09-26] MEDS ORDERED: PIPERACILLIN/TAZOB 3.375 GM 3.375 GM in DEXTROSE 5%-WATER - 50 ML IVPB ONE (12:52)
[2021-09-26] MEDS ORDERED: PIPERACILLIN/TAZOB 3.375 GM 4.5 GM in DEXTROSE 5%-WATER - 50 ML IVPB ONE (13:19)
[2021-09-26 14:13] LABS: EPI CELLS 18 /uL (0-25.1); HYALINE CASTS 13 /uL (0-3.1); URINE APPEARANCE CLOUDY; URINE BACTERIA 4 /uL (0-1359); URINE BILIRUBIN 2+ (NEGATIVE); URINE COLOR DK YELLOW; URINE GLUCOSE (UA) NEGATIVE (NEGATIVE); URINE KETONE TRACE (NEGATIVE); URINE LEUK ESTERASE TRACE (NEGATIVE); URINE NITRITE NEGATIVE (NEGATIVE); URINE PROTEIN 1+ (NEGATIVE); URINE RBC 12 /uL (0-23.9); URINE WBC 7 /uL (0-25.8)
[2021-09-26 15:28] LABS: HEMOGLOBIN 8.4 GM/dL (10.7-15.3); MCH 31.2 pg (25.7-33.7); MCHC 33.6 g/dl (32.0-36.0); MEAN CELL VOLUME 92.8 fl (80-96); RBC 2.69 M/mm3 (3.60-5.2); RDW 26.2 % (11.6-15.6)
[2021-09-26 15:29] LABS: VENOUS BASE EXCESS -3.1 mmol/L (-2-2); VENOUS O2 SATURATION 97.3 % (70-80); VENOUS PCO2 27.6 mmHg (38-52); VENOUS PH 7.474 (7.310-7.410)
[2021-09-26 15:38] LABS: WHITE BLOOD COUNT 15.7 K/mm3 (4.0-10.0)
[2021-09-26 15:39] LABS: PLATELET COUNT 237 10^3/uL (134-434)
[2021-09-26 15:44] LABS: INR 1.37 (0.83-1.09); PROTHROMBIN TIME (PATIENT) 15.8 SEC (9.7-13.0)
[2021-09-26 15:47] LABS: ACTIVATED PTT 29.9 SECONDS (25.2-36.5)
[2021-09-26 16:10] LABS: ALBUMIN 3.4 g/dl (3.4-5.0); BILIRUBIN,TOTAL 1.2 mg/dL (0.2-1); BLOOD UREA NITROGEN 49.9 mg/dL (7-18); CALCIUM 9.4 mg/dL (8.5-10.1); CREATININE 1.9 mg/dL (0.55-1.3); TOT PROT 8.1 g/dl (6.4-8.2)
[2021-09-26] MEDS ORDERED: PIPERACILLIN/TAZOB 4.5 GM 4.5 GM/100 ML BAG IVPB ONE (16:24)
[2021-09-26] MEDS ORDERED: VANCOMYCIN 1 GRAM (PRE-DOCKED) 1,000 MG/250 ML BAG IVPB ONE (16:24)
[2021-09-26] MEDS ORDERED: AZITHROMYCIN IVPB 500 MG/250 ML BAG IVPB ONE (16:25)
[2021-09-26 16:50] LABS: ANISOCYTOSIS 2+; MACROCYTOSIS 1+
[2021-09-26] MEDS ORDERED: ACETAMINOPHEN 1000 MG/100 ML BAG IVPB PRN (17:18)
[2021-09-28 08:24] LABS: HEMATOCRIT 23.8 % (32.4-45.2); HEMOGLOBIN 8.1 GM/dL (10.7-15.3); MCH 31.2 pg (25.7-33.7); MCHC 33.8 g/dl (32.0-36.0); MEAN CELL VOLUME 92.4 fl (80-96); MEAN PLT VOLUME 9.6 fl (7.5-11.1); PLATELET COUNT 226 10^3/uL (134-434); RBC 2.58 M/mm3 (3.60-5.2); RDW 27.7 % (11.6-15.6); WHITE BLOOD COUNT 10.7 K/mm3 (4.0-10.0)
[2021-09-28 08:25] LABS: CALCIUM 9.1 mg/dL (8.5-10.1); MAGNESIUM 2.8 mg/dL (1.8-2.4)
[2021-09-28 08:28] LABS: BLOOD UREA NITROGEN 85.6 mg/dL (7-18); CREATININE 3.4 mg/dL (0.55-1.3)
[2021-09-28 10:14] LABS: ANISOCYTOSIS 1+; MACROCYTOSIS 0; PLATELET ESTIMATE NORMAL
[2021-09-30 20:01] VITALS: BP 96/60; PULSE 143; TEMP 100.5
== END 2021-09-30 23:40 | disposition expired | DRG 64 ==
LOC: JER 11:51 → JERBED 16:36 → J4S 22:33
PROVIDERS: ADMIT Internal Medicine; ATTEND Internal Medicine
DX: I61.9 Nontraumatic intracerebral hemorrhage, unspecified (principal); G93.5 Compression of brain; C92.10 Chronic myeloid leukemia, BCR/ABL-positive, not having achieved remission; E11.22 Type 2 diabetes mellitus with diabetic chronic kidney disease; F03.90 Unspecified dementia, unspecified severity, without behavioral disturbance, psychotic disturbance, mood disturbance, and anxiety; F20.9 Schizophrenia, unspecified; E78.00 Pure hypercholesterolemia, unspecified; R00.0 Tachycardia, unspecified; R50.9 Fever, unspecified; N18.30 Chronic kidney disease, stage 3 unspecified; R41.82 Altered mental status, unspecified; F07.81 Postconcussional syndrome
CPT/HCPCS: 0241U-QW; 36415; 70450-TC; 71045-TC-FY; 80048; 80053; 81003; 82803; 83605; 83735; 84443; 85025; 85610; 85730; 86850; 86900; 86901; 87040; 87086; 93005; 93010; 99291